=== PATIENT | female | born 1925 | race Caucasian/White ===

== ENCOUNTER 2017-01-09 12:53 | Observation (INO) ==
--- NOTE | 2017-01-09 13:30 | Emergency Department Note ---
Disposition Clinical Impression: Melena, Anemia, General weakness Disposition: Admitted As Inpatient Condition: Good Time of Disposition: 15:22 GI Bleed HPI - General Chief complaint: ED GI Bleed Stated complaint: Needs Blood Transfusion Time Seen by Provider: 01/09/17 13:08 Source: patient, family Limitations: no limitations Nursing Notes Reviewed: Yes Vital Signs Reviewed: Yes - History of Present Illness HPI Narrative: Ms. Gomez is a 89 y/o F with a past medical history AFib presents today stating that she needs a blood transfusion. The patient stated that she has been having black stools for the past 4 to 5 days. She went to the lab yesterday and her hemoglobin dropped from 11 to 7. She states that her nailhead operator called her yesterday and told her to contact her PCP. Her PCP, Dr. Ines Waite , sent her to the ED today since the outpatient transfusion center is booked. She admits her last bowel movement was at 2:00 am and it was half black and half brown. She denies any headache, vision changes, , shortness of breath, difficulty breathing, abdominal pain, constipation, diarrhea, numbness and tingling, and any weaknesses. - Related Data Home Medications Medication Instructions Recorded Confirmed Albuterol Sulfate [Proair Hfa] 2 puff IH Q4H PRN 10/22/15 10/22/15 Aspirin Enteric Coated [Aspirin EC] 81 mg PO DAILY 10/22/15 10/22/15 Atorvastatin Calcium [Lipitor] 20 mg PO DAILY 10/22/15 10/22/15 Budesonide/Formoterol 160/4.5 2 puff IH BIDR 10/22/15 10/22/15 [Symbicort 160/4.5] D-Methorphan/Acetamin/Doxylamn 1 cap PO HS PRN 10/22/15 10/22/15 [Vicks Nyquil Liquicaps] Digoxin [Lanoxin] 0.125 mg PO DAILY 10/22/15 10/22/15 Glu/Rachid-MSM#1/D3/C/Mn/Bennett/Bor [Eq 1 tab PO DAILY 10/22/15 10/22/15 [id number] Cplt] L. Acidophilus/Pectin, [place] 1 cap PO DAILY 10/22/15 10/22/15 [Acidophilus Probiotic Capsule] Levothyroxine [Synthroid] 25 mcg PO DAILY 10/22/15 10/22/15 Losartan [Cozaar] 25 mg PO DAILY 10/22/15 10/22/15 Multivitamin [One Daily Essential] 1 tab PO DAILY 10/22/15 10/22/15 Mupirocin Calcium [Bactroban Nasal] 1 appl NS AD 10/22/15 10/22/15 Oxygen 1 each .ROUTE AD 10/22/15 10/22/15 Ubidecarenone [Co Q10] 100 mg PO DAILY 10/22/15 10/22/15 Previous Rx's Medication Instructions Recorded Albuterol Neb [Proventil Neb] 2.5 mg IH Q4HR PRN #100 vial.neb 10/17/15 Benzonatate [Tessalon] 100 mg PO TID PRN #30 capsule 10/27/15 Codeine Sulfate 30 mg PO TID #20 tablet 10/27/15 Furosemide [Lasix] 20 mg PO BID #14 tablet 10/27/15 Insulin Glargine [Lantus] 15 unit SQ DAILY #120 mls 10/27/15 Ipratropium Neb [Atrovent Neb] 0.5 mg IH [id number] 6 Days inhsol 10/27/15 Levalbuterol Neb [Xopenex Neb] 0.63 mg IH [id number] 6 Days 10/27/15 vial.neb Nebulizer [Aeroeclipse] 1 each ONCE #1 each 10/27/15 glipiZIDE [Glipizide] 2.5 mg PO DAILY #7 tablet 10/27/15 levoFLOXacin [Levaquin] 500 mg PO DAILY #4 tablet 10/27/15 metFORMIN [Glucophage] 500 mg PO 0800 #7 tablet 10/27/15 predniSONE [PredniSONE] 10 mg PO DAILY #22 tablet 10/27/15 cephALEXin [Keflex] 500 mg PO QID #40 capsule 02/03/16 predniSONE [Prednisone] 40 mg PO DAILY 5 Days tablet 02/03/16 Albuterol Sulfate [Albuterol 4 puff IH Q4HR PRN #1 hfa.aer.ad 04/18/16 Inhaler] predniSONE [PredniSONE] 40 mg PO DAILY 4 Days tablet 04/18/16 Allergies Allergy/AdvReac Type Severity Reaction Status Date / Time iodine AdvReac Mild Drowsy Verified 10/06/15 11:49 quinidine AdvReac Lethargic Verified 01/09/17 15:53 Constitutional: Denies: fever, chills, weakness, weight change Eyes: Denies: eye pain, eye discharge, vision change ENT ED: Denies: ear pain, throat pain, dental pain, hearing loss, epistaxis, congestion, dysphagia Cardiovascular: Denies: chest pain, palpitations, dyspnea on exertion, edema, syncope Respiratory: Denies: cough, dyspnea, wheezes, hemoptysis, stridor Gastrointestinal: Reports: melena. Denies: abdominal pain, nausea, vomiting, diarrhea, constipation, hematemesis, hematochezia Genitourinary: Denies: dysuria, frequency, hematuria, discharge Musculoskeletal: Denies: back pain, neck pain, arthralgia, myalgia Integumentary: Denies: rash, abrasion, lesions Neurological: Denies: headache, weakness, numbness, paresthesias, confusion, abnormal gait, vertigo Psychiatric: Denies: anxiety, depression, suicidal thoughts, homicidal thoughts , auditory hallucinations, visual hallucinations Endocrine: Denies: fatigue Hematological/Lymphatic: Denies: easy bleeding, easy bruising Allergic/Immunologic: Denies: facial swelling, urticaria Past Medical History - Past Medical History Medical history: Reports: atrial fibrillation, cancer, COPD, GI bleed, hyperlipidemia, hypertension, renal disease Psychiatric history: Reports: no psych history 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: Reports: no 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 - Social History Smoking Status: Never smoker Smokeless Tobacco Status: No Alcohol use: Reports: occasionally Drug use: Reports: none Physical Exam - General Limitations: no limitations General appearance: alert - Head Head exam: atraumatic, normocephalic, normal inspection - Eye Eye exam: Present: normal appearance, PERRL, EOMI - Expanded Eye Exam Pupils: Left: reactive - ENT ENT exam: normal exam, normal oropharynx, mucous membranes moist - Expanded ENT Exam External ear exam: Present: normal external inspection Mouth exam: Present: normal external inspection Teeth exam: Present: normal inspection Throat exam: Present: normal inspection - Neck Neck exam: Present: normal inspection, full ROM, trachea midline - Chest Chest inspection: Present: normal inspection, symmetric chest wall rise - Respiratory Respiratory exam: Present: normal lung sounds bilaterally - Cardiovascular Cardiovascular exam: Present: regular rate, normal rhythm, normal heart sounds - Abdominal Exam Abdominal exam: Present: soft, Non-Tender, normal bowel sounds. Absent: tenderness, distention, guarding, rebound, rigidity, trauma, Rovsing's sign - Rectal Exam Rectal exam: Present: other (The rectal exam was recommended butthe patient refused and denied the rectal exam. ) - Extremities Exam Extremities exam: Present: normal inspection, full ROM. Absent: tenderness, pedal edema - Expanded Upper Extremity Exam Shoulder exam: Present: normal inspection, full ROM Arm exam: Present: normal inspection, full ROM Elbow exam: Present: normal inspection, full ROM Forearm/Wrist exam: Present: normal inspection, full ROM Hand exam: Present: normal inspection, full ROM Vascular exam: Normal: capillary refill, radial pulse - Expanded Lower Extremity Exam Hip/Pelvis exam: Present: normal inspection, full ROM Upper leg exam: Present: normal inspection, full ROM Knee exam: Present: normal inspection, full ROM Lower leg exam: Present: normal inspection, full ROM Ankle exam: Present: normal inspection, full ROM Foot/toe exam: Present: normal inspection, full ROM Neurovascular/Tendon exam: Absent: motor deficit, sensory deficit, tendon deficit - Back Exam Back exam: Present: normal inspection, full ROM. Absent: tenderness - Neurological Exam Neurological exam: Present: alert, oriented X3 - Expanded Neurological Exam Patient oriented to: Present: person, place, time Coma Scale Eye Opening: Spontaneous Coma Scale Motor Response: Obeys Commands Coma Scale Verbal Response: Oriented Coma Scale Total: 15 - Psychiatric Psychiatric exam: Present: normal affect, normal mood - Skin Skin exam: Present: warm, dry, intact, normal color Course Course Narrative: Ms. Gomez is an 89 y/o female with a past medical history of AFib and GI bleed who presents to the ED stating for a blood transfusion. The patient was sent to the ED by her primary care physician due to her low hemoglobin of 7.2. The patient states that she refuse to have any endoscopy, colonoscopy, and rectal exam. The patient's vitals are currently stable and the patient will be admitted to receive transfusion. The patient agrees with this plan. - Consultations Consultation #1: Spoke with Dr. Marquez. He has accepted the patient. Time: 15:17 Vital Signs Temperature 98.2 F 01/09/17 12:55 Pulse Rate 88 01/09/17 12:55 Respiratory Rate 18 01/09/17 12:55 Blood Pressure 113/65 01/09/17 12:55 O2 Sat by Pulse Oximetry 96 01/09/17 12:55 Temperature 98.1 F 01/09/17 16:15 Pulse Rate 108 01/09/17 16:15 Respiratory Rate 18 01/09/17 16:15 Blood Pressure 113/66 01/09/17 16:15 O2 Sat by Pulse Oximetry 96 01/09/17 16:15 Oxygen Delivery Oxygen Delivery Room Air GI Bleed - [facility] Narrative Medical decision making narrative: Ms. Gomez is an 89 y/o female with a past medical history of AFib and GI bleed who presents to the ED stating for a blood transfusion. The patient was sent to the ED by her primary care physician due to her low hemoglobin of 7.2. The patient states that she refuse to have any endoscopy, colonoscopy, and rectal exam. I reviewed the patient's labs and her CBC in the ED showed a hemoglobin of 7.5. She will be admitted to the hospital and receive blood transfusion. Dr. Marquez has accepted the patient. - Differential Diagnosis Likely: melena - Medical Records Medical records reviewed: Yes I reviewed the patient's medical records. - Lab Data Lab results reviewed: Yes I reviewed the patient's lab results. Result diagrams: 01/09/17 13:37 01/09/17 13:37 Lab Results 01/09/17 01/09/17 01/09/17 Range/Units 13:37 13:37 13:37 WBC 15.0 H (4.3-11.1) K/mcL RBC 2.95 L (3.82-4.97) M/mcL Hgb 7.5 L (11.5-15.4) g/dL Hct 24.7 L (35.3-44.9) % MCV 83.7 (83.0-100.0) fL MCH 25.4 L (28.0-33.3) pg MCHC 30.4 L (31.6-35.5) g/dL RDW 17.2 H (11.5-14.5) % Plt Count 258 (140-400) K/mcL MPV 9.0 L (9.4-12.4) fL Immature Gran % 1.3 (0-4) % Seg Neutrophils % 65.5 % Lymphocytes % 6.5 % Monocytes % 26.4 % Eosinophils % 0.1 % Basophils % 0.2 % Neutrophils # 9.8 H (1.6-8.9) K/mcL Lymphocytes # 1.0 (0.6-4.6) K/mcL Monocytes # 4.0 H (0.0-1.3) K/mcL Eosinophils # 0.0 (0.0-0.6) K/mcL Basophils # 0.0 (0.0-0.2) K/mcL Sodium 133 L (136-145) mEq/L Potassium 4.3 (3.5-4.5) mEq/L Chloride 97 L (98-109) mEq/L Carbon Dioxide 26 (19-29) mEq/L BUN 33 H (7-20) mg/dL Creatinine 1.16 H (0.57-1.11) mg/dL Est GFR ( Amer) 53 L (> 60) Est GFR (Non-Af Amer) 44 L (> 60) BUN/Creatinine Ratio 28 H (6-26) Glucose 86 (70-99) mg/dL Calculated Osmolality 283 (280-300) Calcium 9.5 (8.6-10.8) mg/dL Total Bilirubin 1.4 H (0.2-1.2) mg/dL AST 21 (5-34) Units/L ALT 12 (0-55) Units/L Alkaline Phosphatase 165 H (38-126) Units/L Troponin I 0.02 (0-0.03) ng/mL Serum Total Protein 6.8 (6.0-8.3) g/dL Albumin 3.4 L (3.5-5.0) g/dL Globulin 3.4 (2.4-3.5) g/dL Albumin/Globulin Ratio 1.0 L (1.1-2.2) Blood Type Antibody Screen Crossmatch 01/09/17 Range/Units 13:37 WBC (4.3-11.1) K/mcL RBC (3.82-4.97) M/mcL Hgb (11.5-15.4) g/dL Hct (35.3-44.9) % MCV (83.0-100.0) fL MCH (28.0-33.3) pg MCHC (31.6-35.5) g/dL RDW (11.5-14.5) % Plt Count (140-400) K/mcL MPV (9.4-12.4) fL Immature Gran % (0-4) % Seg Neutrophils % % Lymphocytes % % Monocytes % % Eosinophils % % Basophils % % Neutrophils # (1.6-8.9) K/mcL Lymphocytes # (0.6-4.6) K/mcL Monocytes # (0.0-1.3) K/mcL Eosinophils # (0.0-0.6) K/mcL Basophils # (0.0-0.2) K/mcL Sodium (136-145) mEq/L Potassium (3.5-4.5) mEq/L Chloride (98-109) mEq/L Carbon Dioxide (19-29) mEq/L BUN (7-20) mg/dL Creatinine (0.57-1.11) mg/dL Est GFR ( Amer) (> 60) Est GFR (Non-Af Amer) (> 60) BUN/Creatinine Ratio (6-26) Glucose (70-99) mg/dL Calculated Osmolality (280-300) Calcium (8.6-10.8) mg/dL Total Bilirubin (0.2-1.2) mg/dL AST (5-34) Units/L ALT (0-55) Units/L Alkaline Phosphatase (38-126) Units/L Troponin I (0-0.03) ng/mL Serum Total Protein (6.0-8.3) g/dL Albumin (3.5-5.0) g/dL Globulin (2.4-3.5) g/dL Albumin/Globulin Ratio (1.1-2.2) Blood Type B NEGATIVE Antibody Screen NEGATIVE Crossmatch See Detail - EKG Data EKG attestation: Yes I reviewed and interpreted this EKG. Rhythm: A.Fib Josephine/QRS: left axis deviation When compared to previous EKG there are: no significant changes Interpretation: no acute changes Critical Care Time Critical Care Time: No
[2017-01-09 13:45] LABS: Basophils % 0.2 %; Eosinophils % 0.1 %; Hematocrit 24.7 % (35.3-44.9); Immature Granulocytes % 1.3 % (0-4); Lymphocytes % 6.5 %; Mean Corpuscular HGB Conc 30.4 g/dL (31.6-35.5); Mean Corpuscular Hemoglobin 25.4 pg (28.0-33.3); Mean Corpuscular Volume 83.7 fL (83.0-100.0); Monocytes % 26.4 %; Neutrophils # 9.8 K/mcL (1.6-8.9); Platelet Count 258 K/mcL (140-400); Red Blood Count 2.95 M/mcL (3.82-4.97); Red Cell Distribution Width 17.2 % (11.5-14.5); Segmented Neutrophils % 65.5 %
[2017-01-09 13:49] LABS: Hemoglobin 7.5 g/dL (11.5-15.4)
[2017-01-09 13:59] LABS: Albumin 3.4 g/dL (3.5-5.0); Bilirubin,Total 1.4 mg/dL (0.2-1.2); Calcium 9.5 mg/dL (8.6-10.8); Globulin 3.4 g/dL (2.4-3.5); Potassium 4.3 mEq/L (3.5-4.5); Total Protein 6.8 g/dL (6.0-8.3)
--- NOTE | 2017-01-09 14:01 | Emergency Department Note ---
START Narrative - START START: I examined this patient and my medical decision-making was reviewed with the Resident Physician. I agree with the documented findings, disposition and treatment plan as described except to the extent set forth below. 89-year-old female presents emergency room for anemia. Patient had outpatient lab work yesterday that showed a hemoglobin of 7. She was directed to come to get blood transfusion. They attempted to set this up as an outpatient but was unsuccessful. This was explained to me by the patient. She has symptomatic with increasing shortness of breath and fatigue. She denies any chest pain. She states she has had black-colored stool consistent with an upper GI bleed. History of an upper GI bleed in the past that had a colonoscopy done years ago. Patient will be type and cross and will need to get some transfusions of at least 2 units of blood. she states previous colonoscopy did not reveal any bleeding problems.
[2017-01-09] MEDS ORDERED: 0.9 % Sodium Chloride 1,000 ML ONE (15:17)
[2017-01-09] MEDS ORDERED: Ondansetron 4 MG/2 ML VIAL IVP PRN (15:50)
[2017-01-09] MEDS ORDERED: Naloxone 0.4 MG/ML INJ IVP PRN (15:50)
[2017-01-09] MEDS ORDERED: Acetaminophen 325 MG TABLET PO PRN (15:50)
[2017-01-09] MEDS ORDERED: *HR* Dextrose 50 % in Water (Syg) 50 ML SYRINGE IVP PRN (15:53)
[2017-01-09] MEDS ORDERED: D5% in Water 1,000 ML IVC PRN (15:53)
[2017-01-09] MEDS ORDERED: Dextrose Gel 15 GM PO PRN ×2 (15:53)
[2017-01-09] MEDS ORDERED: Insulin LISPRO 300 UNITS/3 ML VIAL SQ SCH ×2 (16:30→21:00)
[2017-01-09] MEDS ORDERED: Albuterol 2.5 MG/3 ML NEBULIZER IH PRN (16:34)
--- NOTE | 2017-01-09 16:42 | Internal Med History&Physical ---
Date of Encounter: 01/09/17 Time of Encounter: 16:37 Assessment and Plan (1) Melena Current visit: Yes Status: Acute 1 patient has been experiencing 4-5 days of melena stool. Hemoglobin 7.5 which is down from August was 11 Denies any abdominal pain fever hematemesis or hematochezia. History of GI bleed in the past 2009 had colonoscopy as well as EGD there was no source of GI bleed found. She was on Coumadin at that time which was stopped. Presently she is on aspirin for paroxysmal atrial fibrillation which we will hold. Type and screen for 2 units and transfuse. 2 presently the patient is declining colonoscopy EGD or rectal exam. We will attempt to obtain stool for occult blood 3 we will recheck hemoglobin in a.m. (2) COPD (chronic obstructive pulmonary disease) Current visit: No Status: Chronic 1 presently stable bronchodilators as needed oxygen as needed to maintain SPO2 greater than 92% Qualifiers: COPD type: unspecified COPD Qualified Code(s): J44.9 - Chronic obstructive pulmonary disease, unspecified (3) Afib Current visit: No Status: Chronic Patient has a history of paroxysmal atrial fibrillation continue with metoprolol we will hold aspirin for now due to bleeding. 2 continuous cardiac monitoring Qualifiers: Atrial fibrillation type: paroxysmal Qualified Code(s): I48.0 - Paroxysmal atrial fibrillation (4) CHF (congestive heart failure) Current visit: No Status: Chronic 1 echo completed in January 2016 EF 60-65%, presently she does not appear to be in fluid overload we will continue with home medications and monitor intake and output 2 low sodium diet Qualifiers: Congestive heart failure type: unspecified congestive heart failure type Congestive heart failure chronicity: chronic Qualified Code(s): I50.9 - Heart failure, unspecified Internal Medicine - H&P: HPI Chief complaint: low Hgb Admitted From: Emergency Dept Plans for Post Hospital Care: Home History of present illness: Ms. Goemz is a 89 year old female past medical history of paroxysmal atrial fibrillation systolic heart failure type 2 diabetes COPD anemia hypothyroidism pulmonary hypertension history of GI bleed in 2009 history of obstructive sleep apnea CVA in 2009. According to the patient she has been experiencing colonic stools for the past 4-5 days. She did have outpatient lab work drawn yesterday it was notified today by her PCP other results patient wanted to have outpatient blood transfusion however was unable to set up an appointment she was advised to go to the ER. In the ER lab work did reveal hemoglobin 7.5 this is down from previous hemoglobin of 11 and 09/11/2016. She notes her last bowel movement was around 2 AM describes as dark she denies any abdominal pain fevers nausea or vomiting. No hematochezia or hematemesis She does admit to some fatigue but no weakness or shortness of breath. Per ER notes patient declined rectal exam. She has been admitted for further workup and evaluation. Presently patient does not appear to be in any pain or discomfort. Her lung sounds are clear heart sounds are irregular with a systolic 3/6 murmur. Abdomen is soft and nontender to palpation she does have some slight pedal edema bilaterally which she states is chronic. Patient again declined any rectal examination she verbalizes that she does not want a colonoscopy or an EGD and that she only wants blood transfusion and sent home. Prior to this development the patient was in her normal state of health living independently and performing her ADLs without difficulty We did discuss CODE STATUS she verbalizes that she wants to be a full code at this time she is hemodynamically stable at this time. I reviewed this case with Dr. Marquez who agrees with plan. Past Med Surg Social Fam HX - Past Medical History Medical history: atrial fibrillation, cancer, COPD, GI bleed, hyperlipidemia, hypertension, renal disease Psychiatric history: no psych history - Social History Smoking Status: Never smoker Smokeless Tobacco Status: No Alcohol use: occasionally Drug use: none - Family History Mother Hx Family Cardiac Disorders: Yes Internal Medicine - H&P: Meds Albuterol Neb [Proventil Neb] 2.5 mg IH Q4HR PRN #100 vial.neb 10/17/15 [Rx] Albuterol Sulfate [Proair Hfa] 2 puff IH Q4H PRN 10/22/15 [History] Aspirin Enteric Coated [Aspirin EC] 81 mg PO DAILY 10/22/15 [History] Atorvastatin Calcium [Lipitor] 20 mg PO DAILY 10/22/15 [History] Budesonide/Formoterol 160/4.5 [Symbicort 160/4.5] 2 puff IH BIDR 10/22/15 [ History] D-Methorphan/Acetamin/Doxylamn [Vicks Nyquil Liquicaps] 1 cap PO HS PRN [History] Digoxin [Lanoxin] 0.125 mg PO DAILY 10/22/15 [History] Glu/[place]achid-[facility] [place]/D3/C/Mn/[place]/Bor [Eq [id number]-Gzapwr-KLJ Cplt] 1 tab PO DAILY 10/22/15 [History] L. Acidophilus/Pectin, [place] [Acidophilus Probiotic Capsule] 1 cap PO DAILY 12/29 [History] Levothyroxine [Synthroid] 25 mcg PO DAILY 10/22/15 [History] Losartan [Cozaar] 25 mg PO DAILY 10/22/15 [History] Multivitamin [One Daily Essential] 1 tab PO DAILY 10/22/15 [History] Mupirocin Calcium [Bactroban Nasal] 1 appl NS AD 10/22/15 [History] Oxygen 1 each .ROUTE AD 10/22/15 [History] Ubidecarenone [Co Q10] 100 mg PO DAILY 10/22/15 [History] Benzonatate [Tessalon] 100 mg PO TID PRN #30 capsule 10/27/15 [Rx] Codeine Sulfate 30 mg PO TID #20 tablet 10/27/15 [Rx] Furosemide [Lasix] 20 mg PO BID #14 tablet 10/27/15 [Rx] Insulin Glargine [Lantus] 15 unit SQ DAILY #120 mls 10/27/15 [Rx] Ipratropium Neb [Atrovent Neb] 0.5 mg IH [id number] 6 Days inhsol 10/27/15 [Rx] Levalbuterol Neb [Xopenex Neb] 0.63 mg IH [id number] 6 Days vial.neb 10/27/15 [Rx ] Nebulizer [Aeroeclipse] 1 each ONCE #1 each 10/27/15 [Rx] glipiZIDE [Glipizide] 2.5 mg PO DAILY #7 tablet 10/27/15 [Rx] levoFLOXacin [Levaquin] 500 mg PO DAILY #4 tablet 10/27/15 [Rx] metFORMIN [Glucophage] 500 mg PO 0800 #7 tablet 10/27/15 [Rx] predniSONE [PredniSONE] 10 mg PO DAILY #22 tablet 10/27/15 [Rx] cephALEXin [Keflex] 500 mg PO QID #40 capsule 02/03/16 [Rx] predniSONE [Prednisone] 40 mg PO DAILY 5 Days tablet 02/03/16 [Rx] Albuterol Sulfate [Albuterol Inhaler] 4 puff IH Q4HR PRN #1 hfa.aer.ad 04/18/16 [Rx] predniSONE [PredniSONE] 40 mg PO DAILY 4 Days tablet 04/18/16 [Rx] 3 Allergy/AdvReac Type Severity Reaction Status Date / Time iodine AdvReac Mild Drowsy Verified 10/06/15 11:49 quinidine AdvReac Lethargic Verified 01/09/17 15:53 All Systems PM: A 10-system review of systems was performed and is negative for pertinent findings except as documented above in the HPI. - Constitutional Constitutional: fatigue - EENT Eyes: no change in vision, no discharge, no pain, no photophobia Nose, mouth and throat: no dysphagia, no nasal discharge, no neck pain, no sore throat - Cardiovascular Cardiovascular ROS IM: no chest pain, no diaphoresis, no dyspnea, no lightheadedness, no palpitations, no syncope - Respiratory Respiratory: no cough, no dyspnea, no wheezing, no excessive phlegm production - Gastrointestinal Gastrointestinal: melena - Genitourinary Genitourinary: no change in urinary stream, no dysuria, no flank pain, no hematuria - Musculoskeletal Musculoskeletal ROS IM: no numbness, no tingling - Integumentary Integumentary IM: no rash, no unusual bruising - Neurological Neurological ROS: no confusion, no convulsions, no focal weakness, no numbness, no tingling, no tremor(s) - Hematologic/Lymphatic Hematologic/Lymphatic: no easy bruising - Constitutional Vitals: Temp Pulse Resp BP Pulse Ox 98.1 F 108 18 113/66 96 01/09/17 16:15 01/09/17 16:15 01/09/17 16:15 01/09/17 16:15 01/09/17 16:15 General appearance: Present: A&O X 3, answers questions appropriately - Head Head exam: Present: atraumatic, normocephalic - Eye Eye exam: Present: PERRL, conjuntiva pink, sclera anicteric Pupils: Present: PERRL - Neck Neck exam general surgery: Present: supple, trachea midline. Absent: lymphadenopathy - Respiratory Respiratory exam: Present: CTAB. Absent: accessory muscle use, rales, rhonchi, wheezes - Cardiovascular Cardiovascular exam: Present: irregular rhythm, +S1, +S2, systolic murmur. Absent: diastolic murmur, gallop, rubs - GI/Abdominal GI/Abdominal exam: Present: normal bowel sounds, soft, no peritoneal signs. Absent: distended, tenderness - Extremities Exam Extremities exam: Present: warm, radial pulses palpable and symmetrical. Absent : calf tenderness, cyanotic, pedal edema - Neurological Exam Neurological exam: Present: CN II-XII intact, oriented X3, no focal deficits. Absent: pronater drift, facial droop, speech deficit - Skin Skin exam: Present: dry, intact Internal Med - H&P Results - Labs CBC & Chem 7: 01/09/17 13:37 01/09/17 13:37 - EKG Data Prior EKG available for review: yes When compared to previous EKG: there are significant changes EKG comments: 01/09/17 16:49 EKG with atrial fibrillation
[2017-01-09] MEDS: Pantoprazole 40 MG VIAL IVP SCH (18:44)
[2017-01-09] MEDS ORDERED: 0.9 % Sodium Chloride 250 ML ONE (20:58)
[2017-01-09] MEDS: Budesonide/Formoterol 160/4.5 MDI IH SCH (21:25)
[2017-01-10 01:30] LABS: Hematocrit 26.9 % (35.3-44.9); Hemoglobin 8.6 g/dL (11.5-15.4); Mean Corpuscular Hemoglobin 26.6 pg (28.0-33.3); Mean Corpuscular Volume 83.3 fL (83.0-100.0); Mean Platelet Volume 9.4 fL (9.4-12.4); Platelet Count 220 K/mcL (140-400); Red Blood Count 3.23 M/mcL (3.82-4.97); Red Cell Distribution Width 16.1 % (11.5-14.5)
[2017-01-10 01:35] LABS: Calcium 9.1 mg/dL (8.6-10.8)
[2017-01-10 02:00] LABS: Hypochromasia Present (Not Present); Lymphocytes # 0.8 K/mcL (0.6-4.6); Monocytes # 1.4 K/mcL (0.0-1.3); Neutrophils # 7.9 K/mcL (1.6-8.9); Platelet Estimate Normal (Normal); Polychromasia 1+ (Not Present)
[2017-01-10] MEDS: Pantoprazole 40 MG VIAL IVP SCH (05:35)
[2017-01-10 07:40] VITALS: BP 105/54
--- NOTE | 2017-01-10 08:09 | Electrocardiograph Report ---
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
[2017-01-10] MEDS: Budesonide/Formoterol 160/4.5 MDI IH SCH (08:18)
[2017-01-10] MEDS ORDERED: Aspirin Enteric Coated 81 MG Tablet PO SCH (09:00)
[2017-01-10] MEDS ORDERED: hydrOXYzine pamoate 25 MG CAPSULE PO SCH (09:00)
[2017-01-10] MEDS ORDERED: Furosemide 20 MG TABLET PO SCH (09:00)
[2017-01-10] MEDS ORDERED: metOLazone 5 MG TABLET PO SCH (09:00)
--- NOTE | 2017-01-10 09:25 | Discharge Summary ---
<Annelise Lopez Leticia - Last Filed: 01/10/17 09:21> Date of Encounter: 01/10/17 Time of Encounter: 09:22 - Discharge Diagnosis (1) Melena Priority: Primary Status: Acute (2) Afib Priority: Secondary Status: Chronic Qualifiers: Atrial fibrillation type: paroxysmal Qualified Code(s): I48.0 - Paroxysmal atrial fibrillation (3) CHF (congestive heart failure) Priority: Secondary Status: Chronic Qualifiers: Congestive heart failure type: diastolic Congestive heart failure chronicity: chronic Qualified Code(s): I50.32 - Chronic diastolic (congestive ) heart failure (4) COPD (chronic obstructive pulmonary disease) Priority: Secondary Status: Chronic Qualifiers: COPD type: unspecified COPD Qualified Code(s): J44.9 - Chronic obstructive pulmonary disease, unspecified - Discharge Medications Home Medications: Atorvastatin Calcium [Lipitor] 20 mg PO HS 10/22/15 [History] Budesonide/Formoterol 160/4.5 [Symbicort 160/4.5] 2 puff IH BIDR 10/22/15 [ History] Oxygen 1 each .ROUTE AD 10/22/15 [History] Aspirin [Lo-Dose Aspirin EC] 81 mg PO DAILY 01/09/17 [History] Fexofenadine/Pseudoephedrine [Jackie-D 12 Hour Tablet] 180 mg PO DAILY PRN [History] Furosemide [Lasix] 20 mg PO DAILY 01/09/17 [History] HydrOXYzine 25 mg PO TID 01/09/17 [History] Inulin/Chromium Picolinate [Fiber Gummies] 1 each PO DAILY 01/09/17 [History] Lactobacillus Acidophilus [Acidophilus Probiotic] 1 mg PO DAILY 01/09/17 [ History] Levothyroxine [Synthroid] 50 mcg PO 0630 01/09/17 [History] Metoprolol Tartrate [Lopressor] 25 mg PO BID 01/09/17 [History] Multivitamin [Multi-Day Vitamins] 1 each PO DAILY 01/09/17 [History] Potassium Chloride [Klor-Con 10] 30 meq PO BID 01/09/17 [History] Spironolactone [Aldactone] 50 mg PO DAILY 01/09/17 [History] Triamcinolone Acetonide 1 appl TP QID PRN 01/09/17 [History] Ubidecarenone [Co Q-10] 200 mg PO DAILY 01/09/17 [History] metOLazone [Zaroxolyn] 5 mg PO DAILY 01/09/17 [History] Allergies/Adverse Reactions: 3 Allergy/AdvReac Type Severity Reaction Status Date / Time iodine AdvReac Mild Drowsy Verified 10/06/15 11:49 quinidine AdvReac Lethargic Verified 01/09/17 15:53 Date of admission: 01/09/17 15:39 Primary care physician: Marti Waite Discharging clinician: Annelise Lopez Anticipated date of discharge: 01/10/17 - Patient Status Disposition: Home, Self-Care Condition: Good Functional capacity at discharge: independent ambulation Overall status at discharge: patient is progressing back to baseline - Discharge Instructions Instructions: Iron Rich Diet (DC), Iron Deficiency Anemia (DC) Follow Up With: Marti Waite MD [Primary Care Provider] - 01/18/17 1:45 pm - Diet and Activity Diet: low salt diet Interval History: Patient feels well this morning. Status post 2 units packed red blood cells. Hospital course: Ms. Gomez is a 89 year old female admitted for blood transfusion due to outpatient blood transfusion facilities having a three-day weight. She had been experiencing 4-5 days of melanotic stool. Hemoglobin was 7.5 on admission to the ER down from previous of 11 in August. She received 2 units of packed red blood cells while admitted. Her hemoglobin subsequently came up to 8.6. She does not wish to have rectal exam or colonoscopy. She has a past medical history of previous GI bleed in 2009 and underwent endoscopy, colonoscopy, and capsule endoscopy and the source of bleeding was never found. - Time Spent with Patient Total time spent providing and/or coordinating discharge services: - Constitutional Vitals: Temp Pulse Resp BP Pulse Ox 97.9 F 109 16 105/54 92 01/10/17 07:39 01/10/17 07:39 01/10/17 08:20 01/10/17 08:20 01/10/17 08:20 General appearance: Present: A&O X 3, pleasant, no acute distress, answers questions appropriately - Head Head exam: Present: atraumatic, normocephalic - Eye Eye exam: Present: PERRL, conjuntiva pink, sclera anicteric Pupils: Present: PERRL - Neck Neck exam general surgery: Present: supple, trachea midline - Respiratory Respiratory exam: Present: CTAB. Absent: accessory muscle use, rales, rhonchi, wheezes - Cardiovascular Cardiovascular exam: Present: irregular rhythm, +S1, +S2, systolic murmur - GI/Abdominal GI/Abdominal exam: Present: normal bowel sounds, soft, no peritoneal signs. Absent: distended, tenderness - Extremities Exam Extremities exam: Present: normal capillary refill, pedal edema, warm. Absent: tenderness - Neurological Exam Neurological exam: Present: CN II-XII intact, oriented X3, no focal deficits. Absent: pronater drift, facial droop, speech deficit - Skin Skin exam: Present: dry, intact, warm <Graham Flor - Last Filed: 01/10/17 17:29> Date of Encounter: 01/10/17 - Discharge Diagnosis (1) Melena Status: Acute (2) Anemia Priority: Primary Status: Acute Qualifiers: Anemia type: iron deficiency Iron deficiency anemia type: chronic blood loss Qualified Code(s): D50.0 - Iron deficiency anemia secondary to blood loss (chronic) (3) CKD (chronic kidney disease) Priority: Secondary Status: Chronic Qualifiers: Chronic kidney disease stage: stage 3 (moderate) Qualified Code(s): N18.3 - Chronic kidney disease, stage 3 (moderate) (4) COPD (chronic obstructive pulmonary disease) Status: Chronic Qualifiers: COPD type: unspecified COPD Qualified Code(s): J44.9 - Chronic obstructive pulmonary disease, unspecified (5) CHF (congestive heart failure) Status: Chronic Qualifiers: Congestive heart failure type: diastolic Congestive heart failure chronicity: chronic Qualified Code(s): I50.32 - Chronic diastolic (congestive ) heart failure (6) Afib Status: Chronic Qualifiers: Atrial fibrillation type: paroxysmal Qualified Code(s): I48.0 - Paroxysmal atrial fibrillation - Notes to Outpatient Provider We recommended OTC iron supplement. She does not want any further work up of her anemia and potential GI bleeding. Date of admission: 01/09/17 15:39 Primary care physician: Marti [facility] course: Ms. Gomez is a 89 year old female - Time Spent with Patient Total time spent providing and/or coordinating discharge services: 34min - Constitutional Vitals: Temp Pulse Resp BP Pulse Ox 97.9 F 109 16 105/54 92 01/10/17 07:39 01/10/17 07:39 01/10/17 08:20 01/10/17 08:20 01/10/17 08:20 - Attending Attestation I examined this patient and my medical decision-making was reviewed with the Resident Physician on 01/10/17. I agree with the documented findings, disposition and treatment plan as described except to the extent set forth below. Ms. Gomez has been placed in observation for melena and anemia. She has received 2 units PRBCs. She does not want any further workup of her anemia and is aware of the potential consequences. She is afebrile with stable vitals. She is ready for discharge home. Exam Alert. Pleasant Mucus membranes dry Heart reg No wheeze Abd soft No edema Plan D/C today Monitor H/H per PCP OTC iron supplement.
== END 2017-01-10 11:16 | disposition home or self-care (01) ==
LOC: 3BNU 12:53 → EMEROO 12:53 → SUATTDRO 15:39 → 3BNU 16:05
PROVIDERS: ADMIT Internal Medicine; ATTEND Internal Medicine

== ENCOUNTER 2017-04-02 01:55 | Inpatient (IN) ==
[2017-04-02] MEDS ORDERED: Ondansetron 4 MG/2 ML VIAL IVP ONE (02:14)
[2017-04-02] MEDS ORDERED: 0.9 % Sodium Chloride 1,000 ML IVC ONE ×3 (02:14→03:53)
[2017-04-02] MEDS ORDERED: *HR* Morphine 2 MG/ML SYRINGE IVP ONE (02:14)
--- NOTE | 2017-04-02 02:17 | Emergency Department Note ---
Disposition Clinical Impression: Colitis, Diverticulosis of colon, Perforation of colon, BLAKE (acute kidney injury) Sepsis Qualifiers: Sepsis type: sepsis due to unspecified organism Qualified Code(s): A41.9 - Sepsis, unspecified organism Disposition: Admitted As Inpatient Referrals: Marti Waite MD [Primary Care Provider] - Forms: ED Satisfaction Letter, Work/School Release Abdominal Pain HPI - General Chief Complaint: ED Abdominal Pain Stated Complaint: ADB Pain Time Seen by Provider: 04/02/17 02:04 Source: patient, family Mode of arrival: private vehicle Limitations: no limitations Nursing Notes Reviewed: Yes Vital Signs Reviewed: Yes - History of Present Illness Pt Subjective Complaint: abdominal pain Onset (ago): hour(s) (since 8pm) Consistency: constant Location: LLQ, RLQ Pain Severity: moderate, severe Pain Scale: 8 Quality: stabbing, sharp Radiation: none Migration to: no migration Improves with: nothing Worsens with: nothing Context: history of similar episodes, other (PAtient states that she thinks the pain is from Diverticulitis) Associated symptoms: Reports: nausea, vomiting, diarrhea, anorexia. Denies: fever, chills, constipation, dysuria, hematemesis, hematochezia, melena, hematuria, syncope Treatments prior to arrival: none - Related Data Home Medications Medication Instructions Recorded Confirmed Atorvastatin Calcium [Lipitor] 20 mg PO HS 10/22/15 01/09/17 Budesonide/Formoterol 160/4.5 2 puff IH BIDR 10/22/15 01/09/17 [Symbicort 160/4.5] Oxygen 1 each .ROUTE AD 10/22/15 01/09/17 Aspirin [Lo-Dose Aspirin EC] 81 mg PO DAILY 01/09/17 01/09/17 Fexofenadine/Pseudoephedrine 180 mg PO DAILY PRN 01/09/17 01/09/17 [Jackie-D 12 Hour Tablet] Furosemide [Lasix] 20 mg PO DAILY 01/09/17 01/09/17 HydrOXYzine 25 mg PO TID 01/09/17 01/09/17 Inulin/Chromium Picolinate [Fiber 1 each PO DAILY 01/09/17 01/09/17 Gummies] Lactobacillus Acidophilus 1 mg PO DAILY 01/09/17 01/09/17 [Acidophilus Probiotic] Levothyroxine [Synthroid] 50 mcg PO 0630 01/09/17 01/09/17 Metoprolol Tartrate [Lopressor] 25 mg PO BID 01/09/17 01/09/17 Multivitamin [Multi-Day Vitamins] 1 each PO DAILY 01/09/17 01/09/17 Potassium Chloride [Klor-Con 10] 30 meq PO BID 01/09/17 01/09/17 Spironolactone [Aldactone] 50 mg PO DAILY 01/09/17 01/09/17 Triamcinolone Acetonide 1 appl TP QID PRN 01/09/17 01/09/17 Ubidecarenone [Co Q-10] 200 mg PO DAILY 01/09/17 01/09/17 metOLazone [Zaroxolyn] 5 mg PO DAILY 01/09/17 01/09/17 Allergies Allergy/AdvReac Type Severity Reaction Status Date / Time iodine AdvReac Mild Drowsy Verified 04/02/17 02:02 quinidine AdvReac Lethargic Verified 04/02/17 02:02 All systems ED: reviewed and negative except as stated. Review of Systems: As Per HPI Constitutional: Denies: fever, chills, weakness Eyes: Denies: vision change ENT ED: Denies: throat pain, congestion, dysphagia Cardiovascular: Denies: chest pain, palpitations, dyspnea on exertion, orthopnea , edema, syncope Respiratory: Reports: dyspnea ("No worse than usual"). Denies: cough, wheezes, sputum production Gastrointestinal: Reports: as per HPI, abdominal pain, nausea, vomiting, diarrhea. Denies: constipation, hematemesis, melena, hematochezia Genitourinary: Denies: urgency, dysuria, frequency, hematuria Musculoskeletal: Denies: back pain, neck pain, joint swelling Integumentary: Denies: rash Neurological: Denies: headache, weakness, numbness, paresthesias, vertigo Abdominal Pain PMH - Past Medical History Medical history: Reports: atrial fibrillation, cancer, COPD, GI bleed, hyperlipidemia, hypertension, renal disease Reports: diverticulosis, diverticulitis Female Surgical History: Reports: other HEADING PINNER history: Reports: other (ovary removed) Psychiatric history: Reports: no psych history - Social History Smoking status: Former smoker Alcohol use: Reports: occasionally Drug use: Reports: none Physical Exam - General Limitations: no limitations General appearance: alert, in no apparent distress - Head Head exam: atraumatic, normocephalic, normal inspection - Eye Eye exam: Present: normal appearance, PERRL. Absent: scleral icterus, conjunctival injection, periorbital swelling - ENT ENT exam: mucous membranes dry - Neck Neck exam: Present: normal inspection, full ROM, trachea midline. Absent: meningismus - Chest Chest inspection: Present: normal inspection - Respiratory Respiratory exam: Present: normal lung sounds bilaterally. Absent: respiratory distress, wheezes, stridor, accessory muscle use, prolonged expiratory phase - Cardiovascular Cardiovascular exam: Present: regular rate, normal rhythm, systolic murmur - Abdominal Exam Abdominal exam: Present: soft, tenderness, guarding. Absent: distention, rebound, rigidity, mass, pulsatile mass Abdominal tenderness: Present: RLQ, LLQ, suprapubic, severe - Extremities Exam Extremities exam: Present: full ROM, normal capillary refill - Neurological Exam Neurological exam: Present: alert, oriented X3 - Psychiatric Psychiatric exam: Present: normal affect, normal mood - Skin Skin exam: Present: warm, dry, intact, normal color Course Course Narrative: Patient presents from home with son for evaluation of abdominal pain + NVD - acute onset at 8pm. She states that it is exactly like the pain she had a few years ago from diverticulitis. She has had an oophorectomy but no other abd surgeries. She has Hx of afib but is not on any anticoagulants. Last echo showed EF of 65%. She is very tender. Pain meds, labs and CT ordered. U/A not ordered yet b/c pt is very dry and most likely has no urine in the bladder. She denies urinary complaints or Hx of frequent UTI's. Will obtain and order this later. Labs indicate acute infection. Creatinine still pending due to lab transitioning to a new machine. - Reevaluation(s) Reevaluation #1: PAtient sleeping - awakens to voice. She states that she is feeling much better from the pain medicine. Vitals stable. Still looks very dry. CT confirms diverticulitis with microperf and colitis. IV ABX ordered. Hospitalist paged. Time: 03:26 Vital Signs Temperature 99.7 F H 04/02/17 01:57 Pulse Rate 93 04/02/17 01:57 Respiratory Rate 18 04/02/17 01:57 Blood Pressure 143/68 04/02/17 01:57 O2 Sat by Pulse Oximetry 97 04/02/17 01:57 Temperature 99.7 F H 04/02/17 01:57 Pulse Rate 85 04/02/17 02:51 Respiratory Rate 16 04/02/17 02:51 Blood Pressure 120/54 04/02/17 02:51 O2 Sat by Pulse Oximetry 94 04/02/17 02:51 Oxygen Delivery Oxygen Delivery Nasal Cannula Abdominal Pain - Medical Records Medical records reviewed: Yes I reviewed the patient's medical records. - Lab Data Lab results reviewed: Yes I reviewed the patient's lab results. Result diagrams: 04/02/17 02:20 04/02/17 02:20 Lab Results 04/02/17 04/02/17 04/02/17 Range/Units 02:20 02:20 02:20 WBC 18.5 H D (4.3-11.1) K/mcL RBC 4.50 (3.82-4.97) M/mcL Hgb 11.9 D (11.5-15.4) g/dL Hct 37.1 (35.3-44.9) % MCV 82.4 L (83.0-100.0) fL MCH 26.4 L (28.0-33.3) pg MCHC 32.1 (31.6-35.5) g/dL RDW 17.0 H (11.5-14.5) % Plt Count 225 (140-400) K/mcL MPV 10.2 (9.4-12.4) fL Immature Gran % 1.9 (0-4) % Seg Neutrophils % 84.3 % Lymphocytes % 1.6 % Monocytes % 12.1 % Eosinophils % 0.0 % Basophils % 0.1 % Neutrophils # 15.6 H (1.6-8.9) K/mcL Lymphocytes # 0.3 L (0.6-4.6) K/mcL Monocytes # 2.2 H (0.0-1.3) K/mcL Eosinophils # 0.0 (0.0-0.6) K/mcL Basophils # 0.0 (0.0-0.2) K/mcL Sodium 134 L (136-145) mEq/L Potassium 4.2 (3.5-4.5) mEq/L Chloride 92 L (98-109) mEq/L Carbon Dioxide 26 (19-29) mEq/L BUN 50 H (7-20) mg/dL Creatinine 1.90 H (0.57-1.11) mg/dL Est GFR ( Amer) 30 L (> 60) Est GFR (Non-Af Amer) 25 L (> 60) BUN/Creatinine Ratio 26 (6-26) Glucose 212 H (70-99) mg/dL Calculated Osmolality 298 (280-300) Lactic Acid 2.7 H (0.5-2.2) mmol/L Calcium 10.7 (8.6-10.8) mg/dL Total Bilirubin 1.9 H (0.2-1.2) mg/dL AST 28 (5-34) Units/L ALT 11 (0-55) Units/L Alkaline Phosphatase 185 H (38-126) Units/L Serum Total Protein 7.9 (6.0-8.3) g/dL Albumin 4.1 (3.5-5.0) g/dL Globulin 3.8 H (2.4-3.5) g/dL Albumin/Globulin Ratio 1.1 (1.1-2.2) - Radiology Data Radiology results reviewed: Yes I reviewed the patient's radiology results. Attestation Statement - Attestation Attestation: I, [place] Dimas MD, personally evaluated this patient and discussed their management with the midlevel provicer, PAC/OYSTER GROWER. I reviewed the midlevel provider 's note and agree with the documented findings, medical decision making, and plan of care. 89-year-old female presents to the emergency department with a complaint of lower abdominal pain which started earlier this evening. She has felt like she had a fever. She has had some nausea and vomiting. No diarrhea. No GI bleed symptoms. Patient has a prior history of diverticulitis and states this feels like her diverticulitis. On examination patient is a well-developed well-nourished elderly female in no acute distress. She is alert and oriented 3. There is no cyanosis or diaphoresis. Breath sounds are clear and equal bilaterally. Heart regular rate and rhythm with a grade 3/6 systolic murmur. Abdomen is soft with present bowel sounds. There is mild to moderate diffuse lower abdominal tenderness, worse in the left lower quadrant. No guarding or rebound tenderness noted. Labs reviewed. CT of the abdomen and pelvis shows severe descending colon and sigmoid colon diverticulosis. Superimposed extensive sigmoid colitis and wall thickening and adjacent micro perforation. No abscess formation. Small amount of pelvic free fluid. The hospitalist, Dr. Rachel, was consulted and accepted admission of the patient.
[2017-04-02 02:29] LABS: Basophils % 0.1 %; Hematocrit 37.1 % (35.3-44.9); Immature Granulocytes % 1.9 % (0-4); Lymphocytes # 0.3 K/mcL (0.6-4.6); Lymphocytes % 1.6 %; Mean Corpuscular HGB Conc 32.1 g/dL (31.6-35.5); Mean Corpuscular Hemoglobin 26.4 pg (28.0-33.3); Mean Corpuscular Volume 82.4 fL (83.0-100.0); Mean Platelet Volume 10.2 fL (9.4-12.4); Monocytes # 2.2 K/mcL (0.0-1.3); Monocytes % 12.1 %; Neutrophils # 15.6 K/mcL (1.6-8.9); Platelet Count 225 K/mcL (140-400); Segmented Neutrophils % 84.3 %
[2017-04-02 02:30] LABS: Hemoglobin 11.9 g/dL (11.5-15.4)
[2017-04-02] MEDS ORDERED: *HR* Morphine 2 MG/ML SYRINGE ONE (02:38)
[2017-04-02] MEDS ORDERED: 0.9 % Sodium Chloride 1,000 ML ONE (02:38)
[2017-04-02] MEDS ORDERED: Ondansetron 4 MG/2 ML VIAL ONE (02:38)
[2017-04-02 02:47] LABS: Albumin 4.1 g/dL (3.5-5.0); Albumin/Globulin Ratio 1.1 (1.1-2.2); Bilirubin,Total 1.9 mg/dL (0.2-1.2); Calcium 10.7 mg/dL (8.6-10.8); Globulin 3.8 g/dL (2.4-3.5); Potassium 4.2 mEq/L (3.5-4.5); Total Protein 7.9 g/dL (6.0-8.3)
[2017-04-02] MEDS ORDERED: Piperacillin/Tazobactam 3.375 GM in Water for inj. (sterile) 20 ML 20 ML IVPB ONE (03:28)
[2017-04-02] MEDS ORDERED: Naloxone 0.4 MG/ML INJ IVP PRN (03:44)
[2017-04-02] MEDS ORDERED: *HR* Morphine 2 MG/ML SYRINGE IVP PRN (03:44)
[2017-04-02] MEDS ORDERED: Acetaminophen 325 MG TABLET PO PRN (03:44)
[2017-04-02] MEDS ORDERED: *HR* Promethazine 25 MG/ML VIAL IVP PRN (03:44)
--- NOTE | 2017-04-02 05:21 | Internal Med History&Physical ---
Date of Encounter: 04/02/17 Time of Encounter: 04:20 Assessment and Plan (1) Sigmoid diverticulitis Current visit: Yes Status: Acute Will admit the pt into Tele Reviewed her CT of Abd - showed sigmoid diverticulitis with micro perforation, no abscess noticed Strict NPO IV hydration empirical abx Cipro and Flagyl ( renally doses ) IV analgesics Will consult surgery in the AM.. since pt does have recurrent diverticulitis (2) Intractable abdominal pain Current visit: Yes Status: Acute (3) Acute renal failure superimposed on stage 3 chronic kidney disease Current visit: Yes Status: Acute Her Cr: 1.9 today, baseline around 1.4 Mostly due to dehydration started her on IV hydration held diuretics and nephro toxic meds Qualifiers: Qualified Code(s): N17.9 - Acute kidney failure, unspecified; N18.3 - Chronic kidney disease, stage 3 (moderate); N18.3 - Chronic kidney disease, stage 3 (moderate) (4) Afib Current visit: No Status: Chronic rate controlled with Metoprolol not a good candidate for anticoag due to high risk for GI bleed cont ASA Qualifiers: Atrial fibrillation type: paroxysmal Qualified Code(s): I48.0 - Paroxysmal atrial fibrillation (5) Diastolic CHF, chronic Current visit: Yes Status: Acute stable not in decompensation held diuretics due to dehydration resume other home meds (6) COPD (chronic obstructive pulmonary disease) Current visit: No Status: Chronic stable not in exacerbation resume home INH regimen Qualifiers: COPD type: unspecified COPD Qualified Code(s): J44.9 - Chronic obstructive pulmonary disease, unspecified (7) Chronic respiratory failure with hypoxia Current visit: Yes Status: Acute chronic home O2 dependent at 2 lit..will cont Internal Medicine - H&P: HPI Chief complaint: Abdominal pain Admitted From: Emergency Dept Plans for Post Hospital Care: Home History of present illness: Ms. Gomez is a 89 year old female with known past medical history of paroxysmal atrial fibrillation systolic heart failure type 2 diabetes COPD anemia hypothyroidism pulmonary hypertension history of GI bleed in 2009 history of obstructive sleep apnea CVA in 2009 presented to ER with worsening abdominal pain and nausea started y/d morning. Her abdominal pain 8/10 in severity , located lower abdomen, non radiating, sharp and stabbing pain. Pt stated her abdominal pain little better now. Her CT of Abd showed as Severe descendig and sigmoid diverticulitis with adjacent micro perforation, with out any abscess formation. Past Med Surg Social Fam HX - Past Medical History Medical history: atrial fibrillation, cancer, COPD, GI bleed, hyperlipidemia, hypertension, renal disease Psychiatric history: no psych history - Past Surgical History Surgical History: cholecystectomy - Social History Smoking Status: Former smoker Smokeless Tobacco Status: No Alcohol use: occasionally Drug use: none - Family History Mother Hx Family Cardiac Disorders: Yes Internal Medicine - H&P: Meds Atorvastatin Calcium [Lipitor] 20 mg PO HS 10/22/15 [History] Budesonide/Formoterol 160/4.5 [Symbicort 160/4.5] 2 puff IH BIDR 10/22/15 [ History] Oxygen 1 each .ROUTE AD 10/22/15 [History] Aspirin [Lo-Dose Aspirin EC] 81 mg PO DAILY 01/09/17 [History] Fexofenadine/Pseudoephedrine [Jackie-D 12 Hour Tablet] 180 mg PO DAILY PRN [History] Furosemide [Lasix] 20 mg PO DAILY 01/09/17 [History] HydrOXYzine 25 mg PO TID 01/09/17 [History] Inulin/Chromium Picolinate [Fiber Gummies] 1 each PO DAILY 01/09/17 [History] Lactobacillus Acidophilus [Acidophilus Probiotic] 1 mg PO DAILY 01/09/17 [ History] Levothyroxine [Synthroid] 50 mcg PO 0630 01/09/17 [History] Metoprolol Tartrate [Lopressor] 25 mg PO BID 01/09/17 [History] Multivitamin [Multi-Day Vitamins] 1 each PO DAILY 01/09/17 [History] Potassium Chloride [Klor-Con 10] 30 meq PO BID 01/09/17 [History] Spironolactone [Aldactone] 50 mg PO DAILY 01/09/17 [History] Triamcinolone Acetonide 1 appl TP QID PRN 01/09/17 [History] Ubidecarenone [Co Q-10] 200 mg PO DAILY 01/09/17 [History] metOLazone [Zaroxolyn] 5 mg PO DAILY 01/09/17 [History] 3 Allergy/AdvReac Type Severity Reaction Status Date / Time iodine AdvReac Mild Drowsy Verified 04/02/17 02:02 quinidine AdvReac Lethargic Verified 04/02/17 02:02 All Systems PM: A 10-system review of systems was performed and is negative for pertinent findings except as documented above in the HPI. Review of systems: Reviewed all the systems everything is benign except the systems and symptoms I mentioned in HPI. - Constitutional Vitals: Temp Pulse Resp BP Pulse Ox 100 F H 66 19 109/47 98 04/02/17 05:05 04/02/17 05:05 04/02/17 05:05 04/02/17 05:05 04/02/17 05:05 General appearance: Present: A&O X 3, no acute distress, answers questions appropriately - Head Head exam: Present: atraumatic, normal inspection - Neck Neck exam general surgery: Present: supple - Respiratory Respiratory exam: Present: decreased breath sounds, wheezes (mild). Absent: accessory muscle use, rales, respiratory distress, rhonchi - Cardiovascular Cardiovascular exam: Present: RRR, +S1, +S2, tachycardia. Absent: systolic murmur - GI/Abdominal GI/Abdominal exam: Present: normal bowel sounds, soft, tenderness (moderate tenderness in lower abdomen). Absent: distended, guarding, rebound, rigid - Extremities Exam Extremities exam: Absent: calf tenderness, pedal edema, tenderness - Back Exam Back exam: Absent: CVA tenderness (L), CVA tenderness (R) - Neurological Exam Neurological exam: Present: alert, oriented X3 - Psychiatric Psychiatric exam: Present: normal affect, normal mood - Skin Skin exam: Absent: rash Internal Med - H&P Results - Labs CBC & Chem 7: 04/02/17 02:20 04/02/17 02:20 Labs: Short CBC 04/02/17 Range/Units 02:20 WBC 18.5 H D (4.3-11.1) K/mcL Hgb 11.9 D (11.5-15.4) g/dL Hct 37.1 (35.3-44.9) % Plt Count 225 (140-400) K/mcL Neutrophils # 15.6 H (1.6-8.9) K/mcL BMP 04/02/17 02:20 Sodium 134 L Potassium 4.2 Chloride 92 L Carbon Dioxide 26 BUN 50 H Creatinine 1.90 H Glucose 212 H Calcium 10.7 Liver Function 04/02/17 Range/Units 02:20 Total Bilirubin 1.9 H (0.2-1.2) mg/dL AST 28 (5-34) Units/L ALT 11 (0-55) Units/L Alkaline Phosphatase 185 H (38-126) Units/L Albumin 4.1 (3.5-5.0) g/dL - Impressions ITS Impressions Abdomen/Pelvis CT 04/02/17 02:24 IMPRESSION: Severe descending colon and sigmoid colon diverticulosis. Superimposed extensive sigmoid colitis and wall thickening and adjacent micro perforation. No abscess formation. Small amount of pelvic free fluid. Cardiomegaly. Status post cholecystectomy. Indeterminate right adrenal nodule measuring 10 mm. D/ / Nicolas Lagunas MD / Nicolas Lagunas MD Interpreting Provider: Nicolas Lagunas MD
[2017-04-02] MEDS: MetroNIDAZOLE 500 MG/100 ML 500 MG/100 ML BAG IVPB SCH ×3 (09:20→23:29)
--- NOTE | 2017-04-02 09:21 | Internal Med Progress Note ---
Addendum entered and electronically signed by Omar Webster DO 04/02/17 13:46: (0) Sepsis Current Visit: No Status: Acute Assessment and plan: - 2 SIRS criteria (tachycardia and leukocytosis) with lactic acid 2.7 on admission. - Likely secondary to sigmoid diverticulitis as seen on CT A/P. - Blood cultures pending. - Patient had received 2L of IV NS in ED. Continue hydration with IV fluid cautiously given her CHF history. - Improves as tachycardia resolved and lactic acid dropped to 1.4 on repeat. - Continue empirical antibiotics IV Cipro and Flagyl at renal dose. - Continue to monitor. Original Note: <Omar Webster - Last Filed: 04/02/17 12:56> Date of Encounter: 04/02/17 Time of Encounter: 08:45 - Assessment and plan (1) Sigmoid diverticulitis Current Visit: No Status: Acute Assessment and plan: - One-day history of abdominal pain with nausea on initial presentation. - CT A/P found severe descending colon and sigmoid colon diverticulosis with superimposed extensive sigmoid colitis and wall thickening and adjacent micro perforation. No abscess formation. - Continue hydration with IV fluid. - Strict NPO - Continue empirical antibiotics IV Cipro and Flagyl at renal dose. - IV morphine prn for pain control. - Continue to monitor. - Given patient improves clinically and remains hemodynamically stable, patient can be transferred to medical floor for further monitoring and care. (2) Acute renal failure superimposed on stage 3 chronic kidney disease Current Visit: No Status: Acute Assessment and plan: - SCr 1.9 on admission, worsen compared to baseline around 1.4. - Likely secondary to dehydration in the setting of poor oral intake and diuretic use. - Hydration with IV fluid. - Avoid nephrotoxin. - Continue to monitor renal function and electrolytes closely. Qualifiers: Qualified Code(s): N17.9 - Acute kidney failure, unspecified; N18.3 - Chronic kidney disease, stage 3 (moderate); N18.3 - Chronic kidney disease, stage 3 (moderate) (3) Afib Current Visit: No Status: Chronic Assessment and plan: - Rate-controlled. - Not on anticoagulation due to significant risk for GI bleed. Qualifiers: Atrial fibrillation type: paroxysmal Qualified Code(s): I48.0 - Paroxysmal atrial fibrillation (4) Diastolic CHF, chronic Current Visit: No Status: Acute Assessment and plan: - Was on Lasix 20 mg PO daily at home. - Hold diuresis for now given current BLAKE on CKD. - Strict I/O and daily weight. (5) COPD (chronic obstructive pulmonary disease) Current Visit: No Status: Chronic Assessment and plan: - Bronchodilators, Symbicort and supplemental oxygen. Qualifiers: COPD type: unspecified COPD Qualified Code(s): J44.9 - Chronic obstructive pulmonary disease, unspecified - Subjective Interval history: This note is NOT for billing purpose. Patient was seen and examined this morning. Patient reports abdominal pain improves and no more nausea. Patient denies fever, chest pain, shortness of breath. - Constitutional Vitals: Temp Pulse Resp BP Pulse Ox 98.5 F 65 20 116/52 97 04/02/17 07:30 04/02/17 07:30 04/02/17 07:30 04/02/17 07:30 04/02/17 07:30 General appearance: Present: A&O X 3, no acute distress, answers questions appropriately - Head Head exam: Present: atraumatic, normocephalic - Eye Eye exam: Present: EOMI, conjuntiva pink, sclera anicteric - Neck Neck exam general surgery: Present: supple, trachea midline. Absent: lymphadenopathy - Respiratory Respiratory exam: Present: CTAB. Absent: accessory muscle use, rales, rhonchi, wheezes - Cardiovascular Cardiovascular exam: Present: RRR, +S1, +S2. Absent: diastolic murmur, rubs, systolic murmur - GI/Abdominal GI/Abdominal exam: Present: normal bowel sounds, soft, tenderness (Diffuse). Absent: distended - Extremities Exam Extremities exam: Present: warm, radial pulses palpable and symmetrical. Absent : cyanotic, pedal edema - Neurological Exam Neurological exam: Present: alert, oriented X3, no focal deficits. Absent: facial droop, speech deficit - Skin Skin exam: Present: dry, warm Internal Medicine: Result - Labs CBC & Chem 7: 04/02/17 02:20 04/02/17 02:20 - VTE Documentation of Mechanical Device: Intermittent pneumatic compression device Consult Discharge Plan - Plan Referrals: aMrti Waite MD [Primary Care Provider] - <Cristian Riley - Last Filed: 12/19/17 17:43> Date of Encounter: 04/02/17 - Constitutional Vitals: Temp Pulse Resp BP Pulse Ox 99.0 F 72 23 114/49 97 04/02/17 15:26 04/02/17 15:26 04/02/17 15:26 04/02/17 15:26 04/02/17 15:26 Internal Medicine: Result - Labs CBC & Chem 7: 04/02/17 02:20 04/02/17 02:20 - Attending Attestation I conducted a face to face diagnostic evaluation of this patient and my medical decision-making was reviewed with the Resident Physician, Dr Omar Webster. I agree with the documented findings, disposition and treatment plan as described except to the extent set forth below: Patient's abdomen is soft and nontender. CT of the abdomen and pelvis findings have been reviewed. We will continue with Cipro and Flagyl for diverticulitis. All listed medical problems are new to me today. Cristian Riley MD
[2017-04-02] MEDS ORDERED: Ipratropium/Albuterol Neb 3 ML IH PRN (13:02)
[2017-04-02] MEDS ORDERED: *HR* Dextrose 50 % in Water (Syg) 50 ML SYRINGE IVP PRN (15:19)
[2017-04-02] MEDS ORDERED: Dextrose Gel 15 GM PO PRN ×2 (15:19)
[2017-04-02] MEDS ORDERED: D5% in Water 1,000 ML IVC PRN (15:19)
[2017-04-02] MEDS: Insulin LISPRO 300 UNITS/3 ML VIAL SQ SCH ×2 (18:12→20:30)
[2017-04-02] MEDS: *HR* Heparin 5,000 UNIT/ML VIAL SQ SCH (18:15)
[2017-04-02] MEDS: *HR* HYDROcodone/Acet 5/325 mg TABLET PO PRN (18:15)
[2017-04-02] MEDS: Budesonide/Formoterol 160/4.5 MDI IH SCH (20:17)
[2017-04-03 05:17] LABS: Basophils % 0.1 %; Hematocrit 29.2 % (35.3-44.9); Hemoglobin A1C 5.1 %; Immature Granulocytes % 3.3 % (0-4); Lymphocytes # 0.6 K/mcL (0.6-4.6); Lymphocytes % 3.1 %; Mean Corpuscular HGB Conc 31.2 g/dL (31.6-35.5); Mean Corpuscular Hemoglobin 26.1 pg (28.0-33.3); Mean Corpuscular Volume 83.7 fL (83.0-100.0); Mean Platelet Volume 10.3 fL (9.4-12.4); Monocytes # 2.7 K/mcL (0.0-1.3); Monocytes % 12.8 %; Neutrophils # 16.9 K/mcL (1.6-8.9); Platelet Count 160 K/mcL (140-400); Red Blood Count 3.49 M/mcL (3.82-4.97); Red Cell Distribution Width 17.4 % (11.5-14.5); Segmented Neutrophils % 80.7 %
[2017-04-03 05:29] LABS: Hemoglobin 9.1 g/dL (11.5-15.4)
[2017-04-03 05:35] LABS: Calcium 8.6 mg/dL (8.6-10.3); Potassium 3.8 mEq/L (3.5-5.1)
[2017-04-03] MEDS: *HR* Heparin 5,000 UNIT/ML VIAL SQ SCH ×2 (06:14→19:15)
[2017-04-03] MEDS: Budesonide/Formoterol 160/4.5 MDI IH SCH ×2 (07:51→22:15)
[2017-04-03] MEDS: Insulin LISPRO 300 UNITS/3 ML VIAL SQ SCH ×3 (08:28→19:12)
[2017-04-03] MEDS: Aspirin Enteric Coated 81 MG Tablet PO SCH (08:36)
--- NOTE | 2017-04-03 09:06 | Internal Med Progress Note ---
<Omar Webster - Last Filed: 04/03/17 11:54> Date of Encounter: 04/03/17 Time of Encounter: 08:00 - Assessment and plan (1) Sepsis Current Visit: Yes Status: Acute Assessment and plan: - 2 SIRS criteria (tachycardia and leukocytosis) with lactic acid 2.7 on admission. - Likely secondary to sigmoid diverticulitis as seen on CT A/P. - Blood cultures pending. - Patient had received 2L of IV NS in ED. Continue hydration with IV fluid cautiously given her CHF history. - Improves as tachycardia resolved and lactic acid dropped to 1.4 on repeat. - Continue empirical antibiotics: renally dosed Flagyl (since 03/23) and change from Cipro to Zosyn for broader coverage. - Continue to monitor. Qualifiers: Sepsis type: sepsis due to unspecified organism Qualified Code(s): A41.9 - Sepsis, unspecified organism (2) Sigmoid diverticulitis Current Visit: No Status: Acute Assessment and plan: - One-day history of abdominal pain with nausea on initial presentation. - CT A/P found severe descending colon and sigmoid colon diverticulosis with superimposed extensive sigmoid colitis and wall thickening and adjacent micro perforation. No abscess formation. - Continue hydration with IV fluid. - Strict NPO - IV morphine prn for pain control. - Continue to monitor. - Continue empirical antibiotics: renally dosed Flagyl (since 03/23) and change from Cipro to Zosyn for broader coverage. - Patient states she does not want surgery. Patient changed her code status to [id number] after lengthy discussion with attending Dr. Riley. (3) Acute renal failure superimposed on stage 3 chronic kidney disease Current Visit: No Status: Acute Assessment and plan: - SCr 1.9 on admission, worsen compared to baseline around 1.4. - Likely secondary to dehydration in the setting of poor oral intake and diuretic use. - Slightly improves as SCr 1.79 today. - Hydration with IV fluid. - Avoid nephrotoxin. - Continue to monitor renal function and electrolytes closely. Qualifiers: Acute renal failure type: unspecified Qualified Code(s): N17.9 - Acute kidney failure, unspecified; N18.3 - Chronic kidney disease, stage 3 (moderate) ; N18.3 - Chronic kidney disease, stage 3 (moderate) (4) Afib Current Visit: No Status: Chronic Assessment and plan: - Rate-controlled. - Continue metoprolol for rate control. - Not on anticoagulation due to significant risk for GI bleed. Qualifiers: Atrial fibrillation type: paroxysmal Qualified Code(s): I48.0 - Paroxysmal atrial fibrillation (5) Diastolic CHF, chronic Current Visit: No Status: Acute Assessment and plan: - Was on Lasix 20 mg PO daily at home. - Hold diuresis for now given current BLAKE on CKD. - Strict I/O and daily weight. - Net +3300 mL so far. No rales noted auscultation of lungs nor significant edema. (6) COPD (chronic obstructive pulmonary disease) Current Visit: No Status: Chronic Assessment and plan: - Continue bronchodilators, Symbicort and supplemental oxygen. Qualifiers: COPD type: unspecified COPD Qualified Code(s): J44.9 - Chronic obstructive pulmonary disease, unspecified (7) DVT prophylaxis Current Visit: No Status: Acute Assessment and plan: - Continue SQ heparin. - Subjective Interval history: Patient was seen and examined this morning. Patient still complains of abdominal pain, mostly at left lower quadrant. Patient reports having bowel movement this morning and it's brown color without any blood. Patient denies fever, nausea, vomiting, chest pain, shortness of breath. Patient states that given her age, she does not want surgery. - Constitutional Vitals: Temp Pulse Resp BP Pulse Ox 99 F 64 15 117/57 93 04/03/17 07:26 04/03/17 07:26 04/03/17 07:26 04/03/17 07:26 04/03/17 07:26 General appearance: Present: A&O X 3, no acute distress, answers questions appropriately - Head Head exam: Present: atraumatic, normocephalic - Eye Eye exam: Present: EOMI, conjuntiva pink, sclera anicteric - Neck Neck exam general surgery: Present: supple, trachea midline. Absent: lymphadenopathy - Respiratory Respiratory exam: Present: wheezes. Absent: accessory muscle use, rales, rhonchi - Cardiovascular Cardiovascular exam: Present: RRR, +S1, +S2. Absent: diastolic murmur, gallop, rubs, systolic murmur - GI/Abdominal GI/Abdominal exam: Present: normal bowel sounds, soft, tenderness (Diffuse but more at left lower quadrant). Absent: distended - Extremities Exam Extremities exam: Present: warm, radial pulses palpable and symmetrical. Absent : cyanotic, pedal edema - Neurological Exam Neurological exam: Present: oriented X3, no focal deficits. Absent: facial droop, speech deficit - Skin Skin exam: Present: dry, intact, warm Internal Medicine: Result - Labs CBC & Chem 7: 04/03/17 04:50 04/03/17 04:50 Labs: Short CBC 04/03/17 Range/Units 04:50 WBC 20.9 H (4.3-11.1) K/mcL Hgb 9.1 L D (11.5-15.4) g/dL Hct 29.2 L (35.3-44.9) % Plt Count 160 (140-400) K/mcL Neutrophils # 16.9 H (1.6-8.9) K/mcL BMP 04/03/17 04:50 Sodium 133 L Potassium 3.8 Chloride 99 Carbon Dioxide 24 BUN 44 H Creatinine 1.79 H Glucose 95 Calcium 8.6 - VTE Documentation of Mechanical Device: Intermittent pneumatic compression device Consult Discharge Plan - Plan Referrals: Marti Waite MD [Primary Care Provider] - 04/12/17 1:45 pm <Cristian Riley - Last Filed: 04/03/17 18:02> Date of Encounter: 04/03/17 - Constitutional Vitals: Temp Pulse Resp BP Pulse Ox 98.2 F 58 15 97/66 96 04/03/17 17:00 04/03/17 17:00 04/03/17 17:00 04/03/17 17:00 04/03/17 17:00 Internal Medicine: Result - Labs CBC & Chem 7: 04/03/17 15:55 04/03/17 04:50 Labs: Short CBC 04/03/17 04/03/17 Range/Units 04:50 15:55 WBC 20.9 H (4.3-11.1) K/mcL Hgb 9.1 L D 9.1 L (11.5-15.4) g/dL Hct 29.2 L 28.6 L (35.3-44.9) % Plt Count 160 (140-400) K/mcL Neutrophils # 16.9 H (1.6-8.9) K/mcL BMP 04/03/17 04:50 Sodium 133 L Potassium 3.8 Chloride 99 Carbon Dioxide 24 BUN 44 H Creatinine 1.79 H Glucose 95 Calcium 8.6 - Attending Attestation I conducted a face to face diagnostic evaluation of this patient and my medical decision-making was reviewed with the Resident Physician, Dr Omar Webster. I agree with the documented findings, disposition and treatment plan as described except to the extent set forth below: Patient's abdomen is more tender today on my examination. Otherwise she appears nontoxic in no acute distress heart is regular lungs are clear. She appears quite comfortable at rest. White blood cell count is increased from yesterday. We will de-escalate antibiotic therapy adding Zosyn for better gram-negative coverage and discontinue Cipro. Patient clearly stated to me that she wishes to have no resuscitation or mechanical ventilation in the event of cardiac or respiratory arrest. On my evaluation she has decision-making capacity. I will enter DNR/DNI. Cristian Riley MD
[2017-04-03] MEDS: MetroNIDAZOLE 500 MG/100 ML 500 MG/100 ML BAG IVPB SCH ×2 (09:18→16:21)
[2017-04-03] MEDS ORDERED: Piperacillin/Tazobactam 3.375 GM/200 ML BAG IVPB SCH (11:00)
[2017-04-03] MEDS: Piperacillin/Tazobactam 3.375 GM/200 ML BAG IVPB SCH ×2 (11:50→23:05)
[2017-04-03 16:13] LABS: Hematocrit 28.6 % (35.3-44.9); Hemoglobin 9.1 g/dL (11.5-15.4)
[2017-04-03] MEDS: *HR* HYDROcodone/Acet 5/325 mg TABLET PO PRN (22:15)
[2017-04-04] MEDS: Insulin LISPRO 300 UNITS/3 ML VIAL SQ SCH ×3 (00:47→11:51)
[2017-04-04] MEDS: MetroNIDAZOLE 500 MG/100 ML 500 MG/100 ML BAG IVPB SCH ×3 (00:49→16:15)
[2017-04-04 04:51] LABS: Basophils % 0.2 %; Eosinophils % 0.1 %; Hematocrit 27.4 % (35.3-44.9); Hemoglobin 8.6 g/dL (11.5-15.4); Immature Granulocytes % 4.4 % (0-4); Lymphocytes # 0.4 K/mcL (0.6-4.6); Lymphocytes % 3.3 %; Mean Corpuscular HGB Conc 31.4 g/dL (31.6-35.5); Mean Corpuscular Hemoglobin 26.1 pg (28.0-33.3); Mean Platelet Volume 10.5 fL (9.4-12.4); Monocytes # 2.4 K/mcL (0.0-1.3); Monocytes % 18.4 %; Neutrophils # 9.6 K/mcL (1.6-8.9); Platelet Count 148 K/mcL (140-400); Red Cell Distribution Width 17.4 % (11.5-14.5); Segmented Neutrophils % 73.6 %
[2017-04-04] MEDS: *HR* Heparin 5,000 UNIT/ML VIAL SQ SCH ×2 (05:55→18:06)
[2017-04-04 06:03] LABS: Platelet Estimate Slight Decrease (Normal)
[2017-04-04 06:06] LABS: Polychromasia 1+ (Not Present)
[2017-04-04 06:08] LABS: Poikilocytosis 1+ (Not Present)
[2017-04-04] MEDS: Ondansetron 4 MG/2 ML VIAL IVP PRN (07:53)
[2017-04-04] MEDS: Budesonide/Formoterol 160/4.5 MDI IH SCH ×2 (08:01→21:58)
[2017-04-04] MEDS: *HR* HYDROcodone/Acet 5/325 mg TABLET PO PRN ×2 (08:37→20:33)
[2017-04-04] MEDS: Aspirin Enteric Coated 81 MG Tablet PO SCH (08:37)
--- NOTE | 2017-04-04 09:06 | Internal Med Progress Note ---
<Omar Webster - Last Filed: 04/04/17 12:58> Date of Encounter: 04/04/17 Time of Encounter: 07:45 - Assessment and plan (1) Sepsis Current Visit: Yes Status: Acute Assessment and plan: - 2 SIRS criteria (tachycardia and leukocytosis) with lactic acid 2.7 on admission. - Likely secondary to sigmoid diverticulitis as seen on CT A/P. - Blood cultures pending. - Patient had received 2L of IV NS in ED. Continue hydration with PO fluid if tolerable. - Improves as tachycardia resolved and lactic acid dropped to 1.4 on repeat. - Continue empirical antibiotics: renally dosed IV Flagyl (since 04/02) and Zosyn (since 04/03). - Continue to monitor closely. Qualifiers: Sepsis type: sepsis due to unspecified organism Qualified Code(s): A41.9 - Sepsis, unspecified organism (2) Sigmoid diverticulitis Current Visit: No Status: Acute Assessment and plan: - One-day history of abdominal pain with nausea on initial presentation. - CT A/P found severe descending colon and sigmoid colon diverticulosis with superimposed extensive sigmoid colitis and wall thickening and adjacent micro perforation. No abscess formation. - Continue hydration with PO fluid. - IV morphine prn for pain control. - Continue to monitor. - Improves as leukocytosis and abdominal pain decreased. Okay to advance to clear liquid diet. - Continue empirical antibiotics: renally dosed IV Flagyl (since 04/02) and Zosyn (since 04/03). - Patient does not want surgery and her code status had been changed to DNR-CCA- DNI after lengthy discussion with attending Dr. Riley. (3) Acute renal failure superimposed on stage 3 chronic kidney disease Current Visit: No Status: Acute Assessment and plan: - SCr 1.9 on admission, worsen compared to baseline around 1.4. - Likely secondary to dehydration in the setting of poor oral intake and diuretic use. - Slightly worsen as SCr 2.06 today. - Hydration with PO fluid. - Avoid nephrotoxin. - Continue to monitor renal function and electrolytes closely. Qualifiers: Acute renal failure type: unspecified Qualified Code(s): N17.9 - Acute kidney failure, unspecified; N18.3 - Chronic kidney disease, stage 3 (moderate) ; N18.3 - Chronic kidney disease, stage 3 (moderate) (4) Afib Current Visit: No Status: Chronic Assessment and plan: - Rate-controlled. - Continue metoprolol for rate control. - Not on anticoagulation due to significant risk for GI bleed. Qualifiers: Atrial fibrillation type: paroxysmal Qualified Code(s): I48.0 - Paroxysmal atrial fibrillation (5) Diastolic CHF, chronic Current Visit: No Status: Acute Assessment and plan: - Was on Lasix 20 mg PO daily at home. - Hold diuresis for now given current BLAKE on CKD. - Strict I/O and daily weight. - Net +3920 mL so far. No rales on auscultation of lungs nor significant edema on exam. (6) COPD (chronic obstructive pulmonary disease) Current Visit: No Status: Chronic Assessment and plan: - Continue bronchodilators, Symbicort and supplemental oxygen. Qualifiers: COPD type: unspecified COPD Qualified Code(s): J44.9 - Chronic obstructive pulmonary disease, unspecified (7) DVT prophylaxis Current Visit: No Status: Acute Assessment and plan: - Continue SQ heparin. - Subjective Interval history: Patient was seen and examined this morning. Patient reports abdominal pain improves compared to yesterday. Patient has some nausea this morning but Zofran seems to help. Patient reports having bowel movement this morning and it's loosen and brown color without any blood. Patient denies fever, chills, chest pain, shortness of breath. - Constitutional Vitals: Temp Pulse Resp BP Pulse Ox 99.2 F 108 18 116/79 91 04/04/17 07:44 04/04/17 07:44 04/04/17 08:02 04/04/17 07:44 04/04/17 08:02 General appearance: Present: A&O X 3, no acute distress, answers questions appropriately - Head Head exam: Present: atraumatic, normocephalic - Eye Eye exam: Present: EOMI, conjuntiva pink, sclera anicteric - Neck Neck exam general surgery: Present: supple, trachea midline. Absent: lymphadenopathy - Respiratory Respiratory exam: Present: CTAB. Absent: accessory muscle use, rales, rhonchi, wheezes - Cardiovascular Cardiovascular exam: Present: RRR, +S1, +S2. Absent: diastolic murmur, gallop, rubs, systolic murmur - GI/Abdominal GI/Abdominal exam: Present: normal bowel sounds, soft, tenderness (Diffuse, mostly at left lower quadrant.). Absent: distended - Extremities Exam Extremities exam: Present: warm, radial pulses palpable and symmetrical. Absent : calf tenderness, cyanotic, pedal edema - Neurological Exam Neurological exam: Present: oriented X3, no focal deficits. Absent: facial droop, speech deficit - Skin Skin exam: Present: dry, intact, warm Internal Medicine: Result - Labs CBC & Chem 7: 04/04/17 04:20 04/04/17 04:20 Labs: Short CBC 04/03/17 04/04/17 Range/Units 15:55 04:20 WBC 13.1 H (4.3-11.1) K/mcL Hgb 9.1 L 8.6 L (11.5-15.4) g/dL Hct 28.6 L 27.4 L (35.3-44.9) % Plt Count 148 (140-400) K/mcL Neutrophils # 9.6 H (1.6-8.9) K/mcL - VTE Documentation of Mechanical Device: Intermittent pneumatic compression device Consult Discharge Plan - Plan Referrals: Marti Waite MD [Primary Care Provider] - 04/12/17 1:45 pm <Cristian Riley - Last Filed: 04/05/17 07:46> Date of Encounter: 04/04/17 - Constitutional Vitals: Temp Pulse Resp BP Pulse Ox 98.4 F 90 16 93/60 92 04/05/17 04:42 04/05/17 04:42 04/05/17 04:42 04/05/17 04:42 04/05/17 04:42 Internal Medicine: Result - Labs CBC & Chem 7: 04/05/17 03:45 04/05/17 03:45 Labs: Short CBC 04/05/17 Range/Units 03:45 WBC 6.8 (4.3-11.1) K/mcL Hgb 10.3 L D (11.5-15.4) g/dL Hct 32.7 L (35.3-44.9) % Plt Count 116 L (140-400) K/mcL Neutrophils # 4.6 (1.6-8.9) K/mcL BMP 04/04/17 04/05/17 04:20 03:45 Sodium 134 L 131 L Potassium 3.6 3.2 L Chloride 100 104 Carbon Dioxide 18 L 18 L BUN 55 H 53 H Creatinine 2.06 H 1.91 H Glucose 69 L 179 H Calcium 8.5 L 7.4 L - Attending Attestation I conducted a face to face diagnostic evaluation of this patient and my medical decision-making was reviewed with the Resident Physician, Dr Omar Webster. I agree with the documented findings, disposition and treatment plan as described except to the extent set forth below: Patient reports improvement in abdominal pain since yesterday. On exam she is in no acute distress awake alert oriented. Heart is regular S1- S2. Abdomen is soft. Plan: Continue with antibiotics Zosyn and Flagyl. We will obtain PT OT consult. Social work consult for possible placement. Cristian Riley MD
[2017-04-04 09:13] LABS: Calcium 8.5 mg/dL (8.6-10.3); Potassium 3.6 mEq/L (3.5-5.1)
[2017-04-04] MEDS ORDERED: Calcium Gluconate 2,000 MG in D5% in Water 100 ML IVPB ONE (09:43)
[2017-04-04 10:16] LABS: Magnesium 2.1 mg/dL (1.6-2.6)
[2017-04-04] MEDS: Piperacillin/Tazobactam 3.375 GM/200 ML BAG IVPB SCH (11:52)
[2017-04-05] MEDS: Piperacillin/Tazobactam 3.375 GM/200 ML BAG IVPB SCH ×2 (00:19→11:27)
[2017-04-05] MEDS: MetroNIDAZOLE 500 MG/100 ML 500 MG/100 ML BAG IVPB SCH ×3 (01:11→17:24)
[2017-04-05 04:00] LABS: Basophils % 0.1 %; Eosinophils % 0.1 %; Hematocrit 32.7 % (35.3-44.9); Immature Granulocytes % 2.1 % (0-4); Lymphocytes # 0.3 K/mcL (0.6-4.6); Lymphocytes % 3.8 %; Mean Corpuscular HGB Conc 31.5 g/dL (31.6-35.5); Mean Corpuscular Hemoglobin 26.3 pg (28.0-33.3); Mean Corpuscular Volume 83.4 fL (83.0-100.0); Monocytes # 1.8 K/mcL (0.0-1.3); Monocytes % 25.8 %; Neutrophils # 4.6 K/mcL (1.6-8.9); Platelet Count 116 K/mcL (140-400); Red Blood Count 3.92 M/mcL (3.82-4.97); Red Cell Distribution Width 17.2 % (11.5-14.5); Segmented Neutrophils % 68.1 %
[2017-04-05 04:17] LABS: Calcium 7.4 mg/dL (8.6-10.3); Potassium 3.2 mEq/L (3.5-5.1)
[2017-04-05 04:57] LABS: Hemoglobin 10.3 g/dL (11.5-15.4)
[2017-04-05 04:59] LABS: Anisocytosis 1+ (Not Present); Microcytosis Present (Not Present); Platelet Estimate Decreased (Normal)
[2017-04-05] MEDS: *HR* Heparin 5,000 UNIT/ML VIAL SQ SCH ×2 (05:30→17:24)
[2017-04-05] MEDS ORDERED: Calcium Gluconate 2,000 MG in D5% in Water 100 ML IVPB ONE (08:01)
[2017-04-05] MEDS ORDERED: Potassium Chloride 40 MEQ, Lidocaine 1% 2 ML in D5% in Water 500 ML IVPB ONE (08:01)
[2017-04-05] MEDS: Aspirin Enteric Coated 81 MG Tablet PO SCH (08:33)
[2017-04-05] MEDS: *HR* HYDROcodone/Acet 5/325 mg TABLET PO PRN (08:34)
[2017-04-05] MEDS: Budesonide/Formoterol 160/4.5 MDI IH SCH (08:37)
--- NOTE | 2017-04-05 08:55 | Internal Med Progress Note ---
<Omar Webster - Last Filed: 04/05/17 09:49> Date of Encounter: 04/05/17 Time of Encounter: 07:45 - Assessment and plan (1) Sigmoid diverticulitis Current Visit: No Status: Acute Assessment and plan: - One-day history of abdominal pain with nausea on initial presentation. - CT A/P found severe descending colon and sigmoid colon diverticulosis with superimposed extensive sigmoid colitis and wall thickening and adjacent micro perforation. No abscess formation. - Continue hydration with PO fluid. - IV morphine prn for pain control. - Continue to monitor. - Improves as abdominal pain decreased and WBC normalized. - Okay to advance diet if patient can tolerate. - Continue empirical antibiotics: renally dosed Zosyn (since 04/03). Will discontinue Flagyl. The antibiotic therapy duration for diverticulitis is typically 5 days. - Patient does not want surgery and her code status had been changed to DNR-CCA- DNI after lengthy discussion with attending Dr. Riley. (2) Sepsis Current Visit: Yes Status: Resolved Assessment and plan: - 2 SIRS criteria (tachycardia and leukocytosis) with lactic acid 2.7 on admission. - Likely secondary to sigmoid diverticulitis as seen on CT A/P. - Blood cultures NGTD - Patient had received 2L of IV NS in ED. Continue hydration with PO fluid if tolerable. - Resolved as heart rate and WBC normalized with lactic acid dropped to 1.4 on repeat. - Continue empirical antibiotics: renally dosed Zosyn (since 04/03). Will discontinue Flagyl. Qualifiers: Sepsis type: sepsis due to unspecified organism Qualified Code(s): A41.9 - Sepsis, unspecified organism (3) Acute renal failure superimposed on stage 3 chronic kidney disease Current Visit: No Status: Acute Assessment and plan: - SCr 1.9 on admission, worsen compared to baseline around 1.4. - Likely secondary to dehydration in the setting of poor oral intake and diuretic use. - Slightly improves as SCr decreased to 1.91 today (was 2.06 yesterday) - Hydration with PO fluid. - Avoid nephrotoxin. - Continue to monitor renal function and electrolytes closely. Qualifiers: Acute renal failure type: unspecified Qualified Code(s): N17.9 - Acute kidney failure, unspecified; N18.3 - Chronic kidney disease, stage 3 (moderate) ; N18.3 - Chronic kidney disease, stage 3 (moderate) (4) Hypokalemia Current Visit: Yes Status: Acute Assessment and plan: - K 3.2 today. Mg normal (2.0). - Give KCl 40 meq IV. - Continue to monitor. (5) Hypocalcemia Current Visit: Yes Status: Acute Assessment and plan: - Ca 7.4 today. - Will give 2 gram of Ca gluconate IV. - Continue to monitor. (6) Afib Current Visit: No Status: Chronic Assessment and plan: - Rate-controlled. - Continue metoprolol for rate control. - Not on anticoagulation due to significant risk for GI bleed. Qualifiers: Atrial fibrillation type: paroxysmal Qualified Code(s): I48.0 - Paroxysmal atrial fibrillation (7) Diastolic CHF, chronic Current Visit: No Status: Acute Assessment and plan: - Was on Lasix 20 mg PO daily at home. - Hold diuresis for now given current BLAKE on CKD. - Strict I/O and daily weight. - Net +4520 mL so far. No rales on auscultation of lungs nor significant edema on exam. (8) COPD (chronic obstructive pulmonary disease) Current Visit: No Status: Chronic Assessment and plan: - Continue bronchodilators, Symbicort and supplemental oxygen. Qualifiers: COPD type: unspecified COPD Qualified Code(s): J44.9 - Chronic obstructive pulmonary disease, unspecified (9) DVT prophylaxis Current Visit: No Status: Acute Assessment and plan: - Continue SQ heparin. - Subjective Interval history: Patient was seen and examined this morning. Patient reports abdominal pain continues to improve. Patient is tolerating liquid diet. Patient denies fever, chills, chest pain, shortness of breath, nausea, vomiting. - Constitutional Vitals: Temp Pulse Resp BP Pulse Ox 97.4 F L 103 18 107/51 94 04/05/17 07:28 04/05/17 08:47 04/05/17 07:28 04/05/17 07:28 04/05/17 08:47 General appearance: Present: A&O X 3, no acute distress, answers questions appropriately - Head Head exam: Present: atraumatic, normocephalic - Eye Eye exam: Present: EOMI, conjuntiva pink, sclera anicteric - Neck Neck exam general surgery: Present: supple, trachea midline - Respiratory Respiratory exam: Present: CTAB. Absent: accessory muscle use, rales, rhonchi, wheezes - Cardiovascular Cardiovascular exam: Present: RRR, +S1, +S2. Absent: diastolic murmur, gallop, rubs, systolic murmur - GI/Abdominal GI/Abdominal exam: Present: normal bowel sounds, soft, tenderness (Left lower quadrant). Absent: distended - Extremities Exam Extremities exam: Present: warm, radial pulses palpable and symmetrical. Absent : cyanotic, pedal edema - Neurological Exam Neurological exam: Present: alert, oriented X3, no focal deficits. Absent: facial droop, speech deficit - Skin Skin exam: Present: dry, warm Internal Medicine: Result - Labs CBC & Chem 7: 04/05/17 03:45 04/05/17 03:45 Labs: Short CBC 04/05/17 Range/Units 03:45 WBC 6.8 (4.3-11.1) K/mcL Hgb 10.3 L D (11.5-15.4) g/dL Hct 32.7 L (35.3-44.9) % Plt Count 116 L (140-400) K/mcL Neutrophils # 4.6 (1.6-8.9) K/mcL BMP 04/04/17 04/05/17 04:20 03:45 Sodium 134 L 131 L Potassium 3.6 3.2 L Chloride 100 104 Carbon Dioxide 18 L 18 L BUN 55 H 53 H Creatinine 2.06 H 1.91 H Glucose 69 L 179 H Calcium 8.5 L 7.4 L - VTE Documentation of Mechanical Device: Intermittent pneumatic compression device Consult Discharge Plan - Plan Instructions: Hydrocodone/Acetaminophen (By mouth), Amoxicillin/Clavulanate Potassium (By mouth), Diverticulitis (DC) Additional Instructions: Please take prescribed Amoxicillin/Clavulanate (Augmentin) 500 mg by mouth every 12 hours for 2 days to finish total 5-day course of antibiotic therapy. You can use prescribed hydrocodone/acetaminophen ([place]) 5-325 1 tablet by mouth every 6 hours as needed for your abdominal pain (20 pills, no refill) Please follow up with your primary care provider within a week. Referrals: Marti Waite MD [Primary Care Provider] - (patient is going to [facility] no pcp appointment is needed) Prescriptions: HYDROcodone/Acet 5/325 mg [[place] 5-325 mg] 1 tab PO Q6HR PRN #20 tablet PRN Reason: Pain Amoxicillin/Clavulanate [Augmentin] 500 mg PO BIDWM #4 tablet <Cristian Rliey - Last Filed: 04/05/17 18:07> Date of Encounter: 04/05/17 - Constitutional Vitals: Temp Pulse Resp BP Pulse Ox 97.7 F 99 15 114/60 98 04/05/17 11:51 04/05/17 11:51 04/05/17 11:51 04/05/17 11:51 04/05/17 11:51 Internal Medicine: Result - Labs CBC & Chem 7: 04/05/17 03:45 04/05/17 03:45 Labs: Short CBC 04/05/17 Range/Units 03:45 WBC 6.8 (4.3-11.1) K/mcL Hgb 10.3 L D (11.5-15.4) g/dL Hct 32.7 L (35.3-44.9) % Plt Count 116 L (140-400) K/mcL Neutrophils # 4.6 (1.6-8.9) K/mcL BMP 04/05/17 03:45 Sodium 131 L Potassium 3.2 L Chloride 104 Carbon Dioxide 18 L BUN 53 H Creatinine 1.91 H Glucose 179 H Calcium 7.4 L - Attending Attestation I conducted a face to face diagnostic evaluation of this patient and my medical decision-making was reviewed with the Resident Physician. I agree with the documented findings, disposition and treatment plan as described except to the extent set forth below: Patient has none no acute distress awake alert oriented. Heart is regular. Lungs are clear. Abdomen is soft, nontender. Plan: Continue with IV Zosyn. Advance diet. Cristian Riley MD
[2017-04-05] MEDS: Ondansetron 4 MG/2 ML VIAL IVP PRN (10:45)
[2017-04-05 11:56] VITALS: BP 114/60
--- NOTE | 2017-04-05 13:58 | Discharge Summary ---
<Omar Webster - Last Filed: 04/05/17 15:13> Date of Encounter: 04/05/17 Time of Encounter: 13:30 - Discharge Diagnosis (1) Sigmoid diverticulitis Priority: Primary Status: Acute (2) Sepsis Priority: Secondary Status: Resolved Qualifiers: Sepsis type: sepsis due to unspecified organism Qualified Code(s): A41.9 - Sepsis, unspecified organism (3) Acute renal failure superimposed on stage 3 chronic kidney disease Priority: Secondary Status: Acute Qualifiers: Acute renal failure type: unspecified Qualified Code(s): N17.9 - Acute kidney failure, unspecified; N18.3 - Chronic kidney disease, stage 3 (moderate) ; N18.3 - Chronic kidney disease, stage 3 (moderate) (4) Hypokalemia Priority: Secondary Status: Acute (5) Hypocalcemia Priority: Secondary Status: Acute (6) Afib Priority: Secondary Status: Chronic Qualifiers: Atrial fibrillation type: paroxysmal Qualified Code(s): I48.0 - Paroxysmal atrial fibrillation (7) Diastolic CHF, chronic Priority: Secondary Status: Acute (8) COPD (chronic obstructive pulmonary disease) Priority: Secondary Status: Chronic Qualifiers: COPD type: unspecified COPD Qualified Code(s): J44.9 - Chronic obstructive pulmonary disease, unspecified - Discharge Medications Prescriptions: HYDROcodone/Acet 5/325 mg [[place] 5-325 mg] 1 tab PO Q6HR PRN #20 tablet PRN Reason: Pain Amoxicillin/Clavulanate [Augmentin] 500 mg PO BIDWM #4 tablet Home Medications: Atorvastatin Calcium [Lipitor] 20 mg PO HS 10/22/15 [History] Budesonide/Formoterol 160/4.5 [Symbicort 160/4.5] 2 puff IH BIDR 10/22/15 [ History] Oxygen 1 each .ROUTE AD 10/22/15 [History] Aspirin [Lo-Dose Aspirin EC] 81 mg PO DAILY 01/09/17 [History] Fexofenadine/Pseudoephedrine [Jackie-D 12 Hour Tablet] 180 mg PO DAILY PRN [History] Furosemide [Lasix] 20 mg PO DAILY 01/09/17 [History] HydrOXYzine 25 mg PO TID 01/09/17 [History] Inulin/Chromium Picolinate [Fiber Gummies] 1 each PO DAILY 01/09/17 [History] Lactobacillus Acidophilus [Acidophilus Probiotic] 1 mg PO DAILY 01/09/17 [ History] Levothyroxine [Synthroid] 50 mcg PO 0630 01/09/17 [History] Metoprolol Tartrate [Lopressor] 25 mg PO BID 01/09/17 [History] Multivitamin [Multi-Day Vitamins] 1 each PO DAILY 01/09/17 [History] Spironolactone [Aldactone] 50 mg PO DAILY 01/09/17 [History] Ubidecarenone [Co Q-10] 200 mg PO DAILY 01/09/17 [History] metOLazone [Zaroxolyn] 5 mg PO DAILY 01/09/17 [History] Lifitegrast [Xiidra] 1 drop BOTH EYES BID 04/02/17 [History] Amoxicillin/Clavulanate [Augmentin] 500 mg PO BIDWM #4 tablet 04/05/17 [Rx] HYDROcodone/Acet 5/325 mg [[place] 5-325 mg] 1 tab PO Q6HR PRN #20 tablet [Rx] Allergies/Adverse Reactions: 3 Allergy/AdvReac Type Severity Reaction Status Date / Time iodine AdvReac Mild Drowsy Verified 04/02/17 02:02 quinidine AdvReac Lethargic Verified 04/02/17 02:02 Date of admission: 04/02/17 04:25 Primary care physician: Marti Waite Consults: 04/04/17 10:25 Consult to Physical Therapy [CONS] Routine Comment: Evaluate, develop and implement POC Reason for Consult: discharge planning OT [Consult to Occupational Therapy] [CONS] Routine Comment: Evaluate, develop and implement POC Reason for Consult: discharge planning 04/04/17 15:00 Consult to Tip Printer [CONS] Routine Reason for SW Consult: PT/OT recommends SNF. Appreciate assistance regarding placement. Discharging clinician: Omar Webster Anticipated date of discharge: 04/05/17 - Patient Status Disposition: Transfer SNF Condition: Fair Functional capacity at discharge: uses cane/walker Overall status at discharge: patient is progressing back to baseline - Discharge Instructions Instructions: Hydrocodone/Acetaminophen (By mouth), Amoxicillin/Clavulanate Potassium (By mouth), Diverticulitis (DC) Follow Up With: Marti Waite MD [Primary Care Provider] - ([facility] is going to [facility] no pcp appointment is needed) Additional Instructions: Please take prescribed Amoxicillin/Clavulanate (Augmentin) 500 mg by mouth every 12 hours for 2 days to finish total 5-day course of antibiotic therapy. You can use prescribed hydrocodone/acetaminophen ([place]) 5-325 1 tablet by mouth every 6 hours as needed for your abdominal pain (20 pills, no refill) Please follow up with your primary care provider within a week. - Diet and Activity Activity: as per physical therapy, increase activity as tolerated Diet: diabetic diet Hospital course: Ms. Gomez is a 89 year-old female with PMH of DM2, HTN, COPD, paroxysmal A-fib and diastolic CHF who presented to [place] ED for 1-day history of worsening abdominal pain and nausea. In ED, patient was noted to have tachycardia and leukocytosis (WBC 18.5). CT A/P found severe descending colon and sigmoid colon diverticulosis with superimposed extensive sigmoid colitis, wall thickening and adjacent micro perforation but no abscess formation. Patient was admitted on for sigmoid diverticulit and started on IV Cipro and Flagyl. Patients left lower quadrant abdominal pain and leukocytosis (WBC 20.9) got worse on so IV Cipro was replaced with IV Zosyn. Patient also states that she does not want surgery and her code status is [id number]-DNI. Patients abdominal pain and leukocytosis improves since. PT/OT recommended SNF/ECF after discharge. On 04/05/17, patients abdominal pain had significantly improved and WBC normalized (6.8). Patient's renal function also slightly improved (SCr 1.91, was 2.06 the day before). Given patient improves clinically and remains hemodynamically stable, patient can be discharged to SNF [facility] with prescription of Amoxicillin/Clavulanate (Augmentin) 500 mg by mouth every 12 hours for 2 days to finish total 5-day course of antibiotic therapy. Patient can use prescribed hydrocodone/acetaminophen ([place]) 5-325 1 tablet by mouth every 6 hours as needed for abdominal pain (20 pills, no refill). Patient also needs follow-up with her primary care provider within a week. Patient expressed understanding and agreement with the discharge plan. All questions were answered. - Time Spent with Patient Total time spent providing and/or coordinating discharge services: Greater than 30 minutes (46 minutes) - Constitutional Vitals: Temp Pulse Resp BP Pulse Ox 97.7 F 99 15 114/60 98 04/05/17 11:51 04/05/17 11:51 04/05/17 11:51 04/05/17 11:51 04/05/17 11:51 General appearance: Present: A&O X 3, no acute distress, answers questions appropriately - Head Head exam: Present: atraumatic, normocephalic - Eye Eye exam: Present: EOMI, conjuntiva pink, sclera anicteric - Neck Neck exam general surgery: Present: normal inspection, supple, trachea midline - Respiratory Respiratory exam: Present: CTAB. Absent: accessory muscle use, rales, rhonchi, wheezes - Cardiovascular Cardiovascular exam: Present: RRR, +S1, +S2. Absent: diastolic murmur, systolic murmur - GI/Abdominal GI/Abdominal exam: Present: normal bowel sounds, soft, tenderness (Left lower quadrant, better compared to yesterday), no peritoneal signs. Absent: distended - Extremities Exam Extremities exam: Present: warm, radial pulses palpable and symmetrical. Absent : cyanotic, pedal edema - Neurological Exam Neurological exam: Present: alert, oriented X3, no focal deficits. Absent: facial droop, speech deficit - Skin Skin exam: Present: dry, intact, warm - VTE Documentation of Mechanical Device: Intermittent pneumatic compression device <Cristian Riley - Last Filed: 04/05/17 18:27> Date of Encounter: 04/05/17 Date of admission: 04/02/17 04:25 Primary care physician: Marti Waite Consults: 04/04/17 10:25 Consult to Physical Therapy [CONS] Routine Comment: Evaluate, develop and implement POC Reason for Consult: discharge planning OT [Consult to Occupational Therapy] [CONS] Routine Comment: Evaluate, develop and implement POC Reason for Consult: discharge planning 04/04/17 15:00 Consult to Tip Printer [CONS] Routine Reason for SW Consult: PT/OT recommends SNF. Appreciate assistance regarding placement. Hospital course: Ms. Gomez is a 89 year old female - Time Spent with Patient Total time spent providing and/or coordinating discharge services: - Constitutional Vitals: Temp Pulse Resp BP Pulse Ox 97.7 F 99 15 114/60 98 04/05/17 11:51 04/05/17 11:51 04/05/17 11:51 04/05/17 11:51 04/05/17 11:51 - Attending Attestation I conducted a face to face diagnostic evaluation of this patient and my medical decision-making was reviewed with the Resident Physician. I agree with the documented findings, disposition and treatment plan as described except to the extent set forth below: Patient tolerated diet. Pain is well controlled with oral medication. Abdomen is soft. White count has normalized. We will transition to oral antibiotics and discharge her to subacute rehabilitation. Cristian Riley MD
--- NOTE | 2017-04-05 15:16 | Physician Discharge Referral ---
ExtendedCare Referral Info Transfer To: [facility] Provider in Charge after Transfer: PCP Institutional Level of Care: Skilled - Diagnosis (1) Sigmoid diverticulitis Priority: Primary Status: Acute (2) Sepsis Priority: Secondary Status: Resolved (3) Acute renal failure superimposed on stage 3 chronic kidney disease Priority: Secondary Status: Acute (4) Hypokalemia Priority: Secondary Status: Acute (5) Hypocalcemia Priority: Secondary Status: Acute (6) Afib Priority: Secondary Status: Chronic (7) Diastolic CHF, chronic Priority: Secondary Status: Acute (8) COPD (chronic obstructive pulmonary disease) Priority: Secondary Status: Chronic - Transfer Medications Prescriptions: HYDROcodone/Acet 5/325 mg [[place] 5-325 mg] 1 tab PO Q6HR PRN #20 tablet PRN Reason: Pain Amoxicillin/Clavulanate [Augmentin] 500 mg PO BIDWM #4 tablet Home Medications: Atorvastatin Calcium [Lipitor] 20 mg PO HS 10/22/15 [History] Budesonide/Formoterol 160/4.5 [Symbicort 160/4.5] 2 puff IH BIDR 10/22/15 [ History] Oxygen 1 each .ROUTE AD 10/22/15 [History] Aspirin [Lo-Dose Aspirin EC] 81 mg PO DAILY 01/09/17 [History] Fexofenadine/Pseudoephedrine [Jackie-D 12 Hour Tablet] 180 mg PO DAILY PRN [History] Furosemide [Lasix] 20 mg PO DAILY 01/09/17 [History] HydrOXYzine 25 mg PO TID 01/09/17 [History] Inulin/Chromium Picolinate [Fiber Gummies] 1 each PO DAILY 01/09/17 [History] Lactobacillus Acidophilus [Acidophilus Probiotic] 1 mg PO DAILY 01/09/17 [ History] Levothyroxine [Synthroid] 50 mcg PO 0630 01/09/17 [History] Metoprolol Tartrate [Lopressor] 25 mg PO BID 01/09/17 [History] Multivitamin [Multi-Day Vitamins] 1 each PO DAILY 01/09/17 [History] Spironolactone [Aldactone] 50 mg PO DAILY 01/09/17 [History] Ubidecarenone [Co Q-10] 200 mg PO DAILY 01/09/17 [History] metOLazone [Zaroxolyn] 5 mg PO DAILY 01/09/17 [History] Lifitegrast [Xiidra] 1 drop BOTH EYES BID 04/02/17 [History] Amoxicillin/Clavulanate [Augmentin] 500 mg PO BIDWM #4 tablet 04/05/17 [Rx] HYDROcodone/Acet 5/325 mg [[place] 5-325 mg] 1 tab PO Q6HR PRN #20 tablet [Rx] Allergies/Adverse Reactions: 3 Allergy/AdvReac Type Severity Reaction Status Date / Time iodine AdvReac Mild Drowsy Verified 04/02/17 02:02 quinidine AdvReac Lethargic Verified 04/02/17 02:02 - Respiratory Orders Oxygen / L per min (2L NC as needed) Smoking Cessation: Smoking cessation has been advised. For more information, call the [facility] Tobacco Quit Line at 7-553-TQQV-NOW. - Advance Directives Code Status: DNR-Arrest/Don't Intubate - Mobility Orders Ambulate (with assistance) - Rehabiliation Orders Rehab Potential: Fair Rehab Orders: Evaluation for Physical Therapy, Evaluation for Occupational Therapy - Diet Orders No Concentrated Sweets (Diabetic diet) CERTIFICATION: I certify that the transfer of the above named patient to an Extended Care Facility is necessary for the continuing treatment of the diagnosis listed. The above information is true and accurate reflection of patient's current condition. Confidential - Redisclosure prohibited without a patient's written consent.
== END 2017-04-05 18:19 | DRG 872 ==
LOC: EMEROO 01:55 → SUATTDRO 04:25 → 2NNU 04:25
PROVIDERS: ADMIT Family Medicine; ATTEND Internal Medicine

== ENCOUNTER 2017-04-11 15:40 | Inpatient (IN) ==
[2017-04-11] MEDS ORDERED: 0.9 % Sodium Chloride 1,000 ML IVC ONE (15:46)
[2017-04-11] MEDS ORDERED: *HR* FentaNYL (PF) 100 MCG/2 ML VIAL IVP ONE ×3 (15:46→17:55)
[2017-04-11 16:05] LABS: Mean Corpuscular Volume 82.1 fL (83.0-100.0)
[2017-04-11 16:07] LABS: Hematocrit 34.3 % (35.3-44.9); Mean Corpuscular HGB Conc 32.1 g/dL (31.6-35.5); Mean Corpuscular Hemoglobin 26.3 pg (28.0-33.3); Mean Platelet Volume 9.7 fL (9.4-12.4); Platelet Count 387 K/mcL (140-400); Red Blood Count 4.18 M/mcL (3.82-4.97); Red Cell Distribution Width 17.7 % (11.5-14.5)
[2017-04-11 16:17] LABS: Albumin 3.2 g/dL (3.5-5.7); Albumin/Globulin Ratio 1.3 (1.1-2.2); Bilirubin,Direct 1.3 mg/dL (0.0-0.2); Bilirubin,Indirect 1.4 mg/dL (0.0-1.2); Bilirubin,Total 2.7 mg/dL (0.3-1.0); Calcium 9.1 mg/dL (8.6-10.3); Globulin 2.5 g/dL (2.4-3.5); Total Protein 5.7 g/dL (6.4-8.9)
--- NOTE | 2017-04-11 16:21 | Emergency Department Note ---
Disposition Clinical Impression: Perforation of intestine due to diverticulitis of gastrointestinal tract, Free intraperitoneal air, Hyponatremia, Elevated troponin I level, Acute kidney injury, Dehydration Abdominal pain Qualifiers: Abdominal location: lower abdomen, unspecified Qualified Code(s): R10.30 - Lower abdominal pain, unspecified Leukocytosis Qualifiers: Leukocytosis type: unspecified Qualified Code(s): D72.829 - Elevated white blood cell count, unspecified Sepsis Qualifiers: Sepsis type: sepsis due to unspecified organism Qualified Code(s): A41.9 - Sepsis, unspecified organism Disposition: Admitted As Inpatient Abdominal Pain HPI - General Chief Complaint: ED Abdominal Pain Stated Complaint: Abd Pain Time Seen by Provider: 04/11/17 15:44 Source: patient, EMS Nursing Notes Reviewed: Yes Vital Signs Reviewed: Yes - History of Present Illness HPI Narrative: 89-year-old female presents with abdominal pain over the last 4 days with nausea no vomiting, abdominal pain across lower abdomen 8/10 in intensity and sharp in his been constant. Patient status post recent diagnosis of severe diverticulosis with microperforation and colitis. Patient currently unable to tolerate by mouth and is feeling very ill. Pain Scale: 8 - Related Data Home Medications Medication Instructions Recorded Confirmed Oxygen 2 l NS AD 10/22/15 04/11/17 Aspirin [Lo-Dose Aspirin EC] 81 mg PO DAILY 01/09/17 04/11/17 Furosemide [Lasix] 20 mg PO DAILY 01/09/17 04/11/17 HydrOXYzine 25 mg PO TID 01/09/17 04/11/17 Inulin/Chromium Picolinate [Fiber 1 each PO DAILY 01/09/17 04/11/17 Gummies] Lactobacillus Acidophilus 1 mg PO DAILY 01/09/17 04/11/17 [Acidophilus Probiotic] Levothyroxine [Synthroid] 50 mcg PO 0630 01/09/17 04/11/17 Metoprolol Tartrate [Lopressor] 25 mg PO BID 01/09/17 04/11/17 Multivitamin [Multi-Day Vitamins] 1 each PO DAILY 01/09/17 04/11/17 Ubidecarenone [Co Q-10] 200 mg PO DAILY 01/09/17 04/11/17 metOLazone [Zaroxolyn] 5 mg PO DAILY 01/09/17 04/11/17 Lifitegrast [Xiidra] 1 drop BOTH EYES BID 04/02/17 04/11/17 Fluticasone/Vilanterol [Breo 1 each IH DAILY 04/11/17 04/11/17 Ellipta 200-25 Mcg INH] Lactose-Reduced Food [Ensure 1 bottle PO TIDWM 04/11/17 04/11/17 Liquid] Mirtazapine 7.5 mg PO HS 04/11/17 04/11/17 Nystatin [Nystatin Suspension] 500,000 unit PO QID 04/11/17 04/11/17 Spironolactone [Aldactone] 50 mg PO DAILY 04/11/17 04/11/17 Previous Rx's Medication Instructions Recorded Amoxicillin/Clavulanate [Augmentin] 500 mg PO BIDWM #4 tablet 04/05/17 HYDROcodone/Acet 5/325 mg [[place] 1 tab PO Q6HR PRN #20 tablet 04/05/17 5-325 mg] Allergies Allergy/AdvReac Type Severity Reaction Status Date / Time iodine AdvReac Mild Drowsy Verified 04/02/17 02:02 quinidine AdvReac Lethargic Verified 04/02/17 02:02 All systems ED: reviewed and negative except as stated. Review of Systems: As Per HPI Constitutional: Reports: weakness. Denies: fever Eyes: Denies: vision change ENT ED: Denies: congestion Cardiovascular: Denies: chest pain Gastrointestinal: Reports: abdominal pain, nausea, vomiting. Denies: hematemesis, melena, hematochezia Abdominal Pain PMH - Past Medical History Medical history: Reports: atrial fibrillation, cancer, COPD, GI bleed, hyperlipidemia, hypertension, renal disease Female Surgical History: Reports: other [employer] history: Reports: other Psychiatric history: Reports: no psych history - Social History Smoking status: Former smoker Alcohol use: Reports: occasionally Drug use: Reports: none Physical Exam Vital Signs Temperature 98.9 F 04/11/17 15:41 Pulse Rate 110 04/11/17 15:41 Respiratory Rate 16 04/11/17 15:41 Blood Pressure 106/90 04/11/17 15:41 O2 Sat by Pulse Oximetry 92 04/11/17 15:41 Temperature 97.7 F 04/12/17 00:13 Pulse Rate 129 04/12/17 00:13 Respiratory Rate 19 04/12/17 00:13 Blood Pressure 86/53 04/12/17 00:13 O2 Sat by Pulse Oximetry 98 04/12/17 00:13 Oxygen Delivery Oxygen Delivery Room Air 89-year-old female who is alert and oriented 3 and in acute distress. Patient is very frail and ill-appearing. Patient is currently tachycardic at 110 beats minute, patient's vital signs otherwise normal. Patient's oral mucosa is very dry. Patient asked for back and vomited during exam. Emesis was nonbloody - General Limitations: no limitations General appearance: alert - Head Head exam: atraumatic, normocephalic, normal inspection - Eye Eye exam: Present: normal appearance, PERRL, EOMI - ENT ENT exam: normal exam, normal oropharynx, mucous membranes dry - Neck Neck exam: Present: normal inspection, full ROM, trachea midline - Chest Chest inspection: Present: normal inspection, symmetric chest wall rise - Respiratory Respiratory exam: Present: normal lung sounds bilaterally - Cardiovascular Cardiovascular exam: Present: normal rhythm, tachycardia - Abdominal Exam Abdominal exam: Present: soft, tenderness Abdominal tenderness: Present: RLQ, LLQ - Extremities Exam Extremities exam: Present: normal inspection, full ROM, normal capillary refill. Absent: tenderness, pedal edema - Back Exam Back exam: Present: normal inspection, full ROM. Absent: tenderness, CVA tenderness (R), CVA tenderness (L) - Neurological Exam Neurological exam: Present: alert, oriented X3 - Skin Skin exam: Present: warm, dry, intact, normal color. Absent: diaphoresis, erythema, mottled Course - Consultations Consultation #1: lab called for critical high WBC 45.5 Time: 16:16 Consultation #2: Dr. Fernandez of radiology called to let us know the patient's chest x-ray shows free air Time: 16:57 Vital Signs Temperature 98.9 F 04/11/17 15:41 Pulse Rate 110 04/11/17 15:41 Respiratory Rate 16 04/11/17 15:41 Blood Pressure 106/90 04/11/17 15:41 O2 Sat by Pulse Oximetry 92 04/11/17 15:41 Temperature 95.9 F L 04/12/17 07:23 Pulse Rate 120 04/12/17 11:00 Respiratory Rate 16 04/12/17 15:09 Blood Pressure 78/59 04/12/17 11:14 O2 Sat by Pulse Oximetry 100 04/12/17 15:09 Oxygen Delivery Oxygen Delivery Room Air Abdominal Pain - MDM Narrative Medical decision making narrative: Patient's concerning for possible intestinal perforation, small bowel obstruction, ischemic colitis, infectious colitis. Chest x-ray showed free air underneath the right hemidiaphragm. CT scan abdomen and pelvis as a radio been ordered and currently awaiting results. Patient's labs show a highly elevated WBC 45.5 was called in by the lab. Patient has an elevated troponin as well. Sepsis workup was initiated upon arrival. Patient's currently suspected of having perforated diverticulitis and started on Zosyn. Awaiting CT results to contact general surgery. In the meantime patient has been receiving IV fluid hydration, Zofran for nausea control, fentanyl IV for pain control. Treatments have been improving patient's condition. Patient is a lot more comfortable. Patient's vital signs are tolerating treatment. CT: Persistent findings concerning for sigmoid diverticulitis, similar to relatively recent exam 04/02/2017. However, there is significantly worsened intraperitoneal free air as compared to prior exam. There is also a mild degree of ascites, worsened from prior exam without focal fluid collection to suggest abscess formation. No evidence for obstruction. Dr. Augusitne of general Surgery came and saw the patient at bedside. After long discussion with the patient and her son family was not able to come to a conclusion on whether patient should go to surgery at this time. He currently recommends admission to medicine and will have reevaluation concerning family patient's wishes for proceeding with surgery or strictly medical management. Patient was accepted to medicine at [address] Cason. - Medical Records Medical records reviewed: Yes I reviewed the patient's medical records. CT scan dated 04/02/2017 CT scan shows severe descending colon and sigmoid diverticulosis with superimposed severe colitis and microperforation with small amount of free fluid no abscess formation - Lab Data Lab results reviewed: Yes I reviewed the patient's lab results. Lab results narrative: Short CBC 04/11/17 Range/Units 15:57 WBC 45.5 H* D (4.3-11.1) K/mcL Hgb 11.0 L (11.5-15.4) g/dL Hct 34.3 L (35.3-44.9) % Plt Count 387 (140-400) K/mcL Neutrophils # 40.0 H (1.6-8.9) K/mcL BMP 04/11/17 Range/Units 15:57 Sodium 128 L (136-145) mEq/L Potassium 5.0 (3.5-5.1) mEq/L Chloride 92 L (98-107) mEq/L Carbon Dioxide 21 L (23-29) mEq/L BUN 56 H (8-23) mg/dL Creatinine 1.77 H (0.60-1.20) mg/dL Glucose 83 (70-105) mg/dL Calcium 9.1 (8.6-10.3) mg/dL Cardiac Enzymes 04/11/17 Range/Units 15:57 Troponin I 0.06 H* (< 0.04) ng/mL Liver Function 04/11/17 Range/Units 15:57 Total Bilirubin 2.7 H (0.3-1.0) mg/dL Direct Bilirubin 1.3 H (0.0-0.2) mg/dL AST 39 (13-39) Units/L ALT 15 (7-52) Units/L Alkaline Phosphatase 212 H (34-104) Units/L Albumin 3.2 L (3.5-5.7) g/dL Urine 04/11/17 Range/Units 19:40 Urine Color Dark Yellow (Yellow) Urine Clarity Clear (Clear) Urine pH 5.5 (5.0-8.0) pH Units Ur Specific [place] 1.022 (1.010-1.025) Urine Protein Negative (Neg-Trace) mg/dL Urine Glucose (UA) Normal (Normal) mg/dL Result diagrams: 04/12/17 04:06 04/12/17 04:06 Lab Results 04/11/17 04/11/17 04/11/17 Range/Units 15:57 15:57 15:57 WBC 45.5 H* D (4.3-11.1) K/mcL RBC 4.18 (3.82-4.97) M/mcL Hgb 11.0 L (11.5-15.4) g/dL Hct 34.3 L (35.3-44.9) % MCV 82.1 L (83.0-100.0) fL MCH 26.3 L (28.0-33.3) pg MCHC 32.1 (31.6-35.5) g/dL RDW 17.7 H (11.5-14.5) % Plt Count 387 (140-400) K/mcL MPV 9.7 (9.4-12.4) fL Seg Neutrophils % 80.0 % Band Neutrophils % 8.0 H (0-4) % Lymphocytes % 2.0 % Monocytes % 10.0 % Neutrophils # 40.0 H (1.6-8.9) K/mcL Lymphocytes # 0.9 (0.6-4.6) K/mcL Monocytes # 4.6 H (0.0-1.3) K/mcL Platelet Estimate Normal (Normal) Anisocytosis 1+ A (Not Present) PT (9.4-12.1) Seconds INR Sodium 128 L (136-145) mEq/L Potassium 5.0 (3.5-5.1) mEq/L Chloride 92 L (98-107) mEq/L Carbon Dioxide 21 L (23-29) mEq/L BUN 56 H (8-23) mg/dL Creatinine 1.77 H (0.60-1.20) mg/dL Est GFR ( Amer) 33 L (> 60) Est GFR (Non-Af Amer) 27 L (> 60) BUN/Creatinine Ratio 32 H (6-26) Glucose 83 (70-105) mg/dL Calculated Osmolality 281 (280-300) Lactic Acid (0.5-2.2) mmol/L Calcium 9.1 (8.6-10.3) mg/dL Total Bilirubin 2.7 H (0.3-1.0) mg/dL Direct Bilirubin 1.3 H (0.0-0.2) mg/dL Indirect Bilirubin 1.4 H (0.0-1.2) mg/dL AST 39 (13-39) Units/L ALT 15 (7-52) Units/L Alkaline Phosphatase 212 H (34-104) Units/L Troponin I 0.06 H* (< 0.04) ng/mL Serum Total Protein 5.7 L (6.4-8.9) g/dL Albumin 3.2 L (3.5-5.7) g/dL Globulin 2.5 (2.4-3.5) g/dL Albumin/Globulin Ratio 1.3 (1.1-2.2) Lipase 69 (11-82) Units/L 04/11/17 04/11/17 Range/Units 15:57 16:55 WBC (4.3-11.1) K/mcL RBC (3.82-4.97) M/mcL Hgb (11.5-15.4) g/dL Hct (35.3-44.9) % MCV (83.0-100.0) fL MCH (28.0-33.3) pg MCHC (31.6-35.5) g/dL RDW (11.5-14.5) % Plt Count (140-400) K/mcL MPV (9.4-12.4) fL Seg Neutrophils % % Band Neutrophils % (0-4) % Lymphocytes % % Monocytes % % Neutrophils # (1.6-8.9) K/mcL Lymphocytes # (0.6-4.6) K/mcL Monocytes # (0.0-1.3) K/mcL Platelet Estimate (Normal) Anisocytosis (Not Present) PT 19.0 H (9.4-12.1) Seconds INR 1.7 Sodium (136-145) mEq/L Potassium (3.5-5.1) mEq/L Chloride (98-107) mEq/L Carbon Dioxide (23-29) mEq/L BUN (8-23) mg/dL Creatinine (0.60-1.20) mg/dL Est GFR ( Amer) (> 60) Est GFR (Non-Af Amer) (> 60) BUN/Creatinine Ratio (6-26) Glucose (70-105) mg/dL Calculated Osmolality (280-300) Lactic Acid 1.9 (0.5-2.2) mmol/L Calcium (8.6-10.3) mg/dL Total Bilirubin (0.3-1.0) mg/dL Direct Bilirubin (0.0-0.2) mg/dL Indirect Bilirubin (0.0-1.2) mg/dL AST (13-39) Units/L ALT (7-52) Units/L Alkaline Phosphatase (34-104) Units/L Troponin I (< 0.04) ng/mL Serum Total Protein (6.4-8.9) g/dL Albumin (3.5-5.7) g/dL Globulin (2.4-3.5) g/dL Albumin/Globulin Ratio (1.1-2.2) Lipase (11-82) Units/L - Radiology Data Radiology results reviewed: Yes I reviewed the patient's radiology results. Chest X-Ray 04/11/17 15:45 IMPRESSION: Lucency beneath the right hemidiaphragm worrisome for free intraperitoneal air. Findings were called to the ordering service at 4:52 pm on 04/11/2017. Findings were discussed with Ras Webster at 4:55 pm on 04/11/2017. D/ / Clementine Bowers Cha, MD / Clementine Bowers Cha, MD Interpreting Provider: Clementine Bowers Cha, MD Abdomen/Pelvis CT 04/11/17 15:47 IMPRESSION: Persistent findings concerning for sigmoid diverticulitis, similar to relatively recent exam 04/02/2017. However, there is significantly worsened intraperitoneal free air as compared to prior exam. There is also a mild degree of ascites, worsened from prior exam without focal fluid collection to suggest abscess formation. No evidence for obstruction. New small right pleural effusion. New mild degree of nonspecific diffuse subcutaneous edema. Stable cardiomegaly. Critical results were called by Dr. Liam Beavers MD to Ras Webster on 04/11/2017 at 17:10. D/ / 04/11/2017 17:18:48 Liam Beavers MD / roddy Interpreting Provider: Liam Beavers MD - EKG Data EKG attestation: Yes I reviewed and interpreted this EKG. EKG results narrative: EKG taken 04/03/2017 at 1647 hrs. shows A. fib with RVR at a rate of [address] elevations in any leads, EKG shows mild ST depression in V6 with inversion of T waves, T wave inversion can be seen on previous EKG for comparison dated January 2017 which shows A. fib at a rate of 85 beats a minute. Critical Care Time Critical Care Time: Yes Total Critical Care Time: 35 Attestation: The high probability of a clinically significant, sudden or life threatening deterioration of the [GI/CV] system(s) required my full and direct attention, intervention and personal management. The aggregate critical care time was [35] minutes. This time is in addition to time spent performing reported procedures but includes the following: [x] Data Review and interpretation [x] Patient assessment and monitoring of vital signs [x] Documentation [x] Medication orders and management Attestation Statement - Attestation Attestation: I examined this patient and my medical decision-making was reviewed with the Resident Physician, Dr. Webster. I agree with the documented findings, disposition and treatment plan as described except to the extent set forth below. Pt is an 89 yo wf, brought to the ER by her son for worsening abd pain, N/V, and inability to tolerate PO. Pt arrives tachycardic and apppears clinically dehydrated with c/o moderate abd pain. Pt recently hospitalized within past week for diverticulitis and sepsis. Pt feels her sxs are worsening. I agree with pt's PE findings, except on my assessment, pt with gen abd TTP, with guarding, concerning for acute abd. With recent hx, worried about possible performated diverticulum. Pt started on IVF resuscitation, and sepsis protocol initiated. IVF boluses ordered, and labs, CT imaging ordered including CXR. CXR shows free air, which was suspected on clinical exam, sent for CT. Empiric IV zosyn started in eD, as pt was switched from cipro/flagyl to zosyn during her prior hospital course. Appeared to be more effective. Pt with worsening free air, pneumoperitoneum, and sigmoid diverticulitis without obvious abscess. Pt with continued pain meds/antiemetics IV. Labs show significant leukocytosis, and lactic acidosis. Notified gen surgery, consulted form ED and evaluated pt in ED. Pt expressed to me during my discussion of her test results and likely need for surgery, that she did not want to have surgery. Dr. Augustine, Gen Surg, spoke with pt at bedside and unclear at this point whether pt will undergo surgery, at this time is declining. Will admit to hospitalist and gen surg will continue to follow as communication consultant. IVF continued, IV antibx infusing, d/w hospitalist.
[2017-04-11 16:27] LABS: Lymphocytes # 0.9 K/mcL (0.6-4.6); Monocytes # 4.6 K/mcL (0.0-1.3); Platelet Estimate Normal (Normal)
[2017-04-11 16:28] LABS: Anisocytosis 1+ (Not Present)
[2017-04-11] MEDS ORDERED: 0.9 % Sodium Chloride 500 ML IVC ONE (16:43)
[2017-04-11] MEDS ORDERED: Ondansetron 4 MG/2 ML VIAL IVP ONE (16:46)
[2017-04-11] MEDS ORDERED: Piperacillin/Tazobactam 3.375 GM in D5% in Water (Mini-Bag+) 100 ML IVPB ONE (17:08)
[2017-04-11 17:27] LABS: INR 1.7
[2017-04-11] MEDS ORDERED: Piperacillin/Tazobactam 3.375 GM in Water for inj. (sterile) 20 ML 20 ML IVP ONE (18:00)
[2017-04-11 19:47] LABS: Bilirubin,Urine Negative (Negative); Blood,Urine Negative (Negative); Clarity,Urine Clear (Clear); Color,Urine Dark Yellow (Yellow); Glucose,Urine (UA) Normal (Normal); Ketones,Urine Negative (Negative); Leukocyte Esterase,Urine Negative (Negative); Nitrite,Urine Negative (Negative); PH,Urine 5.5 pH Units (5.0-8.0); Protein,Urine Negative (Neg-Trace); Specific Gravity,Urine 1.022 (1.010-1.025); Urobilinogen,Urine Normal (Normal)
--- NOTE | 2017-04-11 20:33 | General Surgery Consult Note ---
Date of Encounter: 04/11/17 Time of Encounter: 20:26 Assessment and Plan (1) Sigmoid diverticulitis Current Visit: No Status: Acute 89F with multiple comorbidities with pneumoperitoneum 2/2 perforated diverticulitis. No evidence of any abscess on CT that I am able to appreciate ( all images were reviewed by me personally and factored into my judgement). I discussed with the patient concerning her options, non operative management, as before, or surgery. I told her that with her symptoms returning so soon after hospitalization, it is likely that non operative management will be unsuccessful , possibly while still in patient and very likely if she is discharged from the hospital. If she did nothing more aggressive for a disease that has failed non operative management, there is a good chance she would meet her demise. Furthermore, if surgery was decided, due to her comorbidities, there is a chance she will not survive the procedure, not the physiological insult from both surgery and her disease. The patient did elect for conservative measures with plans to discuss with her family her wishes. Surgery will continue to follow History of Present Illness Consult date: 04/11/17 History of present illness: 89F with PMH significant for CAD, CHF, atrial fibrillation, pulm hypertension, CVA, COPD, [place], renal failure whod presents with a repeat episode of LLQ abdominal pain. She was admitted and treated approximately 10 days prior with antibiotics, bowel rest and pain control. Upon discharge, per the patient, her pain wasn't completely resolved. She continued to experience LLQ abdominal pain , the most recent occuring today. No associated fevers, chills, but she does report poor PO intake due to worsening pain. The pain, per the patient, is severe. A CT scan was obtained demosntrated significant free air. her WBC is elevated at 45K. Surgery was consulted for management recommendations. Past Med Surg Social Fam HX - Past Medical History Medical history: atrial fibrillation, cancer, COPD, GI bleed, hyperlipidemia, hypertension, renal disease Psychiatric history: no psych history - Past Surgical History Surgical History: cholecystectomy - Social History Smoking Status: Former smoker Smokeless Tobacco Status: No Alcohol use: occasionally Drug use: none - Family History Mother Hx Family Cardiac Disorders: Yes Medications and Allergies Oxygen 2 l NS AD 10/22/15 [History] Aspirin [Lo-Dose Aspirin EC] 81 mg PO DAILY 01/09/17 [History] Furosemide [Lasix] 20 mg PO DAILY 01/09/17 [History] HydrOXYzine 25 mg PO TID 01/09/17 [History] Inulin/Chromium Picolinate [Fiber Gummies] 1 each PO DAILY 01/09/17 [History] Lactobacillus Acidophilus [Acidophilus Probiotic] 1 mg PO DAILY 01/09/17 [ History] Levothyroxine [Synthroid] 50 mcg PO 0630 01/09/17 [History] Metoprolol Tartrate [Lopressor] 25 mg PO BID 01/09/17 [History] Multivitamin [Multi-Day Vitamins] 1 each PO DAILY 01/09/17 [History] Ubidecarenone [Co Q-10] 200 mg PO DAILY 01/09/17 [History] metOLazone [Zaroxolyn] 5 mg PO DAILY 01/09/17 [History] Lifitegrast [Xiidra] 1 drop BOTH EYES BID 04/02/17 [History] Amoxicillin/Clavulanate [Augmentin] 500 mg PO BIDWM #4 tablet 04/05/17 [Rx] HYDROcodone/Acet 5/325 mg [[place] 5-325 mg] 1 tab PO Q6HR PRN #20 tablet [Rx] Fluticasone/Vilanterol [Breo Ellipta 200-25 Mcg INH] 1 each IH DAILY 04/11/17 [ History] Lactose-Reduced Food [Ensure Liquid] 1 bottle PO TIDWM 04/11/17 [History] Mirtazapine 7.5 mg PO HS 04/11/17 [History] Nystatin [Nystatin Suspension] 500,000 unit PO QID 04/11/17 [History] Spironolactone [Aldactone] 50 mg PO DAILY 04/11/17 [History] 3 Allergy/AdvReac Type Severity Reaction Status Date / Time iodine AdvReac Mild Drowsy Verified 04/02/17 02:02 quinidine AdvReac Lethargic Verified 04/02/17 02:02 Review of Systems All systems PM: A 10-system review of systems was performed and is negative for pertinent findings except as documented above in the HPI. General Surgery Exam Initial Vital Signs Temp Pulse Resp BP Pulse Ox 98.9 F 110 16 106/90 92 04/11/17 15:41 04/11/17 15:41 04/11/17 15:41 04/11/17 15:41 04/11/17 15:41 - General physical appearance well developed, no distress, moderate pain - Eyes normal ocular movement - Neck no lymphadectomy - Respiratory normal expansion, normal respiratory effort - Cardiovascular Cardiovascular exam: Present: RRR - Abdomen Abdomen general surgery: Present: soft, distended, tender Abdominal Tenderness: Present: LLQ Hernia: Present: none - Integumentary Integumentary general surgery: Present: warm and dry - Neurologic Present: CN 2-12 grossly intact - Psychiatric Psychiatric general surgery: Present: A&Ox3 Exam Initial Vital Signs Temp Pulse Resp BP Pulse Ox 98.9 F 110 16 106/90 92 04/11/17 15:41 04/11/17 15:41 04/11/17 15:41 04/11/17 15:41 04/11/17 15:41 Results - Labs 04/11/17 15:57 04/11/17 15:57 Abnormal lab results WBC 45.5 K/mcL (4.3-11.1) H* D 04/11/17 15:57 Hgb 11.0 g/dL (11.5-15.4) L 04/11/17 15:57 Hct 34.3 % (35.3-44.9) L 04/11/17 15:57 MCV 82.1 fL (83.0-100.0) L 04/11/17 15:57 MCH 26.3 pg (28.0-33.3) L 04/11/17 15:57 RDW 17.7 % (11.5-14.5) H 04/11/17 15:57 Band Neutrophils % 8.0 % (0-4) H 04/11/17 15:57 Neutrophils # 40.0 K/mcL (1.6-8.9) H 04/11/17 15:57 Monocytes # 4.6 K/mcL (0.0-1.3) H 04/11/17 15:57 Anisocytosis 1+ (Not Present) A 04/11/17 15:57 PT 19.0 Seconds (9.4-12.1) H 04/11/17 15:57 Sodium 128 mEq/L (136-145) L 04/11/17 15:57 Chloride 92 mEq/L (98-107) L 04/11/17 15:57 Carbon Dioxide 21 mEq/L (23-29) L 04/11/17 15:57 BUN 56 mg/dL (8-23) H 04/11/17 15:57 Creatinine 1.77 mg/dL (0.60-1.20) H 04/11/17 15:57 Est GFR ( Amer) 33 (> 60) L 04/11/17 15:57 Est GFR (Non-Af Amer) 27 (> 60) L 04/11/17 15:57 BUN/Creatinine Ratio 32 (6-26) H 04/11/17 15:57 Total Bilirubin 2.7 mg/dL (0.3-1.0) H 04/11/17 15:57 Direct Bilirubin 1.3 mg/dL (0.0-0.2) H 04/11/17 15:57 Indirect Bilirubin 1.4 mg/dL (0.0-1.2) H 04/11/17 15:57 Alkaline Phosphatase 212 Units/L (34-104) H 04/11/17 15:57 Troponin I 0.06 ng/mL (< 0.04) H* 04/11/17 15:57 Serum Total Protein 5.7 g/dL (6.4-8.9) L 04/11/17 15:57 Albumin 3.2 g/dL (3.5-5.7) L 04/11/17 15:57 All other labs normal. - Imaging CT scan - abdomen: report reviewed, image reviewed CT scan - pelvis: report reviewed, image reviewed Consult Discharge Plan - Plan Referrals: Marti Waite MD [Primary Care Provider] -
[2017-04-11] MEDS ORDERED: Naloxone 0.4 MG/ML INJ IVP PRN (22:10)
--- NOTE | 2017-04-11 22:22 | Internal Med History&Physical ---
Date of Encounter: 04/11/17 Time of Encounter: 22:20 Assessment and Plan (1) Sepsis Current visit: No Status: Resolved 2/2 to perforated viscus IV cipro/flagyl NPO, IVF IV pain control Need source control with perforated sigmoid diverticulitis D/w surgery Dr Augustine and patient/family. Did not want surgery for now but would consider - they will discuss more. Will need surgical re-eval in the a.m Prognosis guarded Qualifiers: Sepsis type: sepsis due to unspecified organism Qualified Code(s): A41.9 - Sepsis, unspecified organism (2) Sigmoid diverticulitis Current visit: No Status: Acute now perforated management per surgery above (3) Atrial fibrillation with RVR Current visit: Yes Status: Acute check Mg in a.m treat sepsis above as best as possible but patient declined surgery in the ED. Will need close eval IV metoprolol push for now If BP low or if not controlled may need amiodarone IV or dilt gtt respectively close monitoring High risk for morbidity and mortality (4) BLAKE (acute kidney injury) Current visit: No Status: Acute IVF Internal Medicine - H&P: HPI Chief complaint: Abdo pain History of present illness: Ms. Gomez is a 89 year old female who presents with perforated viscus from progressive sigmoid diverticulitis. She was admitted approx 1 week ago on Mar for acute diverticulitis and improved on PO antibiotics. She was later sent to SNF where she had been for 4- 5 days. In the last day or so, she developed progressive, worsening LLQ pain that radiate to the RLQ, rate 8/10. Associated with anorexia. No improving factors. Worse with movement She is DNRCCA/DNI per patient and family EKG A. fib with RVR at a rate of 112 CT/CT abd pelvis wo no iv no oral IMPRESSION: Persistent findings concerning for sigmoid diverticulitis, similar to relatively recent exam 04/02/2017. However, there is significantly worsened intraperitoneal free air as compared to prior exam. There is also a mild degree of ascites, worsened from prior exam without focal fluid collection to suggest abscess formation. No evidence for obstruction. New small right pleural effusion. New mild degree of nonspecific diffuse subcutaneous edema. Stable cardiomegaly. XR/XR chest 1V portable IMPRESSION: Lucency beneath the right hemidiaphragm worrisome for free intraperitoneal air. Past Med Surg Social Fam HX - Past Medical History Medical history: atrial fibrillation, cancer, COPD, GI bleed, hyperlipidemia, hypertension, renal disease Psychiatric history: no psych history - Past Surgical History Surgical History: cholecystectomy - Social History Smoking Status: Former smoker Smokeless Tobacco Status: No Alcohol use: occasionally Drug use: none - Family History Mother Hx Family Cardiac Disorders: Yes Internal Medicine - H&P: Meds Oxygen 2 l NS AD 10/22/15 [History] Aspirin [Lo-Dose Aspirin EC] 81 mg PO DAILY 01/09/17 [History] Furosemide [Lasix] 20 mg PO DAILY 01/09/17 [History] HydrOXYzine 25 mg PO TID 01/09/17 [History] Inulin/Chromium Picolinate [Fiber Gummies] 1 each PO DAILY 01/09/17 [History] Lactobacillus Acidophilus [Acidophilus Probiotic] 1 mg PO DAILY 01/09/17 [ History] Levothyroxine [Synthroid] 50 mcg PO 0630 01/09/17 [History] Metoprolol Tartrate [Lopressor] 25 mg PO BID 01/09/17 [History] Multivitamin [Multi-Day Vitamins] 1 each PO DAILY 01/09/17 [History] Ubidecarenone [Co Q-10] 200 mg PO DAILY 01/09/17 [History] metOLazone [Zaroxolyn] 5 mg PO DAILY 01/09/17 [History] Lifitegrast [Xiidra] 1 drop BOTH EYES BID 04/02/17 [History] Amoxicillin/Clavulanate [Augmentin] 500 mg PO BIDWM #4 tablet 04/05/17 [Rx] HYDROcodone/Acet 5/325 mg [[place] 5-325 mg] 1 tab PO Q6HR PRN #20 tablet [Rx] Fluticasone/Vilanterol [Breo Ellipta 200-25 Mcg INH] 1 each IH DAILY 04/11/17 [ History] Lactose-Reduced Food [Ensure Liquid] 1 bottle PO TIDWM 04/11/17 [History] Mirtazapine 7.5 mg PO HS 04/11/17 [History] Nystatin [Nystatin Suspension] 500,000 unit PO QID 04/11/17 [History] Spironolactone [Aldactone] 50 mg PO DAILY 04/11/17 [History] 3 Allergy/AdvReac Type Severity Reaction Status Date / Time iodine AdvReac Mild Drowsy Verified 04/02/17 02:02 quinidine AdvReac Lethargic Verified 04/02/17 02:02 All Systems PM: A 10-system review of systems was performed and is negative for pertinent findings except as documented above in the HPI. Review of systems: ROS 14 point review of systems reviewed as best as possible given presentation. Pertinent positive or negative as per HPI or otherwise reviewed as negative - Constitutional Vitals: Temp Pulse Resp BP Pulse Ox 97.8 F 114 18 101/52 95 04/11/17 20:24 04/11/17 20:50 04/11/17 20:24 04/11/17 20:24 04/11/17 20:24 Exam: General - AAO x 3 Psych - Appropriate affect/speech. No agitation Eyes - BRENDA. Eye lids intact. No scleral icterus Heart - Irregularly irregular. S1 and S2 present. No added HS/murmurs appreciated. No elevated JVD appreciated. Lung - Adequate air entry b/l, No crackles/wheezes appreciated GI - abdomen rigid with guarding. No hepatosplenomegaly/ascites. BS+ - No CVA/suprapubic tenderness or palpable bladder distension Skin - Intact. No rash/petechiae/ecchymosis. Warm extremities MSK - Joints with normal ROM. No joint swellings Internal Med - H&P Results - Labs CBC & Chem 7: 04/11/17 15:57 04/11/17 15:57 Labs: Urine 04/11/17 Range/Units 19:40 Urine Color Dark Yellow (Yellow) Urine Clarity Clear (Clear) Urine pH 5.5 (5.0-8.0) pH Units Ur Specific [place] 1.022 (1.010-1.025) Urine Protein Negative (Neg-Trace) mg/dL Urine Glucose (UA) Normal (Normal) mg/dL
[2017-04-11] MEDS ORDERED: 0.9 % Sodium Chloride 500 ML IV.SOLN IVC ONE (22:33)
[2017-04-11] MEDS ORDERED: 0.9 % Sodium Chloride 1,000 ML IV ONE (22:45)
[2017-04-11] MEDS ORDERED: 0.9 % Sodium Chloride 1,000 ML ONE (23:18)
[2017-04-11] MEDS: *HR* Morphine 2 MG/ML SYRINGE IVP PRN (23:22)
[2017-04-11] MEDS: Ringers Solution, Lactated 1,000 ML IVC SCH (23:23)
[2017-04-11] MEDS: metroNIDAZOLE 500 MG TABLET PO SCH (23:24)
[2017-04-11] MEDS: *HR* Metoprolol 5 MG/5 ML VIAL IVP SCH (23:24)
[2017-04-12] MEDS: *HR* Metoprolol 5 MG/5 ML VIAL IVP SCH ×2 (00:02→04:51)
[2017-04-12] MEDS: *HR* Morphine 2 MG/ML SYRINGE IVP PRN (02:56)
[2017-04-12] MEDS: 0.9 % Sodium Chloride 1,000 ML IVC SCH ×3 (03:41→07:42)
[2017-04-12] MEDS: Ipratropium/Albuterol Neb 3 ML IH SCH ×6 (04:17→23:50)
[2017-04-12 04:25] LABS: Red Cell Distribution Width 17.8 % (11.5-14.5)
[2017-04-12 04:27] LABS: Hemoglobin 9.2 g/dL (11.5-15.4); Mean Corpuscular HGB Conc 31.7 g/dL (31.6-35.5); Mean Corpuscular Hemoglobin 26.1 pg (28.0-33.3); Mean Corpuscular Volume 82.2 fL (83.0-100.0); Mean Platelet Volume 9.6 fL (9.4-12.4); Platelet Count 313 K/mcL (140-400); Red Blood Count 3.53 M/mcL (3.82-4.97)
[2017-04-12 04:33] LABS: Calcium 7.8 mg/dL (8.6-10.3); Magnesium 1.7 mg/dL (1.6-2.6); Potassium 5.2 mEq/L (3.5-5.1)
[2017-04-12 05:56] LABS: Lymphocytes # 0.7 K/mcL (0.6-4.6); Monocytes # 2.7 K/mcL (0.0-1.3); Neutrophils # 30.9 K/mcL (1.6-8.9); Platelet Estimate Normal (Normal)
[2017-04-12 05:57] LABS: Acanthocytes 2+ (Not Present); Anisocytosis 1+ (Not Present); Microcytosis Present (Not Present)
[2017-04-12] MEDS ORDERED: Levothyroxine Sodium 100 MCG VIAL IVP SCH (06:30)
[2017-04-12] MEDS ORDERED: *HR* Dextrose 50 % in Water (Syg) 50 ML SYRINGE ONE (06:30)
[2017-04-12] MEDS ORDERED: *HR* Dextrose 50 % in Water (Syg) 50 ML SYRINGE IVP ONE (07:05)
[2017-04-12] MEDS: Ringers Solution, Lactated 1,000 ML IVC SCH (07:43)
[2017-04-12] MEDS ORDERED: *HR* HYDROcodone/Acet 5/325 mg TABLET PO PRN ×3 (08:21→11:07)
--- NOTE | 2017-04-12 08:22 | Pulmonology Consult Note ---
Date of Encounter: 04/12/17 Time of Encounter: 08:19 Assessment and Plan (1) Goals of care, counseling/discussion Current Visit: Yes Status: Acute This is an 89-year-old woman with multiple medical comorbidities including long- standing heart failure complicated by valvular heart disease COPD chronic respiratory failure she presented with abdominal pain and sepsis secondary to perforated viscus from diverticulitis. This is a second occurrence of this and the treatment would involve surgery as she has already failed conservative management. Unfortunately she is exhibiting signs of severe sepsis with progression to shock and multiorgan system failure and further review of her labs and chart reveal acute on chronic kidney injury hyperkalemia atrial fibrillation with rapid ventricular response suspected cardiogenic/ noncardiogenic pulmonary edema with worsening respiratory failure and increasing lactic acidosis) and without definitive treatment she would not be expected to recover. Unfortunately for her to undergo surgery would also pose a very high mortality giving her age chronic medical comorbidities and severity of underlying illness. I spoke to the patient at bedside upon arrival to ICU both by myself with the bedside nurse and in the presence of the general surgeon Dr. Osorio. She unequivocally explained to both of us that she feels like her body is tired and she does not one to go forward with surgery and that she does not want any further aggressive treatment for this understanding that the outcome would be her demise. This is also reiterated in the presence of her daughter (and next of kin). I offered my emotional support and was available to answer any questions explaining any misunderstandings that the patient and her family may have they both expressed understanding and agreement with plan. I have change CODE STATUS to reflect this [facility] Palliative care will be consulted for hospice arrangements (2) Septic shock Current Visit: Yes Status: Acute (3) MODS (multiple organ dysfunction syndrome) Current Visit: Yes Status: Acute (4) Perforated abdominal viscus Current Visit: Yes Status: Acute (5) Acute and chronic respiratory failure Current Visit: No Status: Acute Qualifiers: Respiratory failure complication: unspecified whether with hypoxia or hypercapnia Qualified Code(s): J96.20 - Acute and chronic respiratory failure , unspecified whether with hypoxia or hypercapnia (6) BLAKE (acute kidney injury) Current Visit: Yes Status: Acute (7) Atrial fibrillation with RVR Current Visit: Yes Status: Acute (8) Hyperkalemia Current Visit: Yes Status: Acute History of Present Illness Consult date: 04/12/17 Requesting physician: Albino Ríos Reason for consult: other (Shock) Chief complaint: Abdominal Pain History of present illness: This is an 89-year-old woman with past medical history of heart failure with reduced ejection fraction mitral valve disease COPD and recent history of diverticulitis with rupture that was managed conservatively at patient's request because she did not want to undergo surgery for repair. Unfortunately over the last couple days she has had increasing abdominal pain presented with evidence of severe sepsis white count was 45 CT of the abdomen showed free air with suggestion of ruptured viscus general surgery consultation was made with recommendations to proceed with surgery as a life-saving option patient has refused surgery overnight and this morning she has had worsening clinical course including atrial fibrillation with RVR hypotension and lactic acidosis and worsening renal dysfunction she was transferred to the ICU for further management. She is a remote history of smoking but advanced COPD. No significant environmental/industrial exposures. She is complaining of abdominal pain and dry mouth and is desperate for "something wet" to cool her mouth. She is also mildly dyspneic. Early this morning patient was transferred from stepdown unit ICU for hypotension despite receiving 3 L crystalloid challenge. Past Med Surg Social Fam HX - Past Medical History Medical history: atrial fibrillation, cancer, COPD, GI bleed, hyperlipidemia, hypertension, renal disease Psychiatric history: no psych history - Past Surgical History Surgical History: cholecystectomy - Social History Smoking Status: Former smoker Smokeless Tobacco Status: No Alcohol use: occasionally Drug use: none - Family History Mother Hx Family Cardiac Disorders: Yes Medications and Allergies Oxygen 2 l NS AD 10/22/15 [History] Aspirin [Lo-Dose Aspirin EC] 81 mg PO DAILY 01/09/17 [History] Furosemide [Lasix] 20 mg PO DAILY 01/09/17 [History] HydrOXYzine 25 mg PO TID 01/09/17 [History] Inulin/Chromium Picolinate [Fiber Gummies] 1 each PO DAILY 01/09/17 [History] Lactobacillus Acidophilus [Acidophilus Probiotic] 1 mg PO DAILY 01/09/17 [ History] Levothyroxine [Synthroid] 50 mcg PO 0630 01/09/17 [History] Metoprolol Tartrate [Lopressor] 25 mg PO BID 01/09/17 [History] Multivitamin [Multi-Day Vitamins] 1 each PO DAILY 01/09/17 [History] Ubidecarenone [Co Q-10] 200 mg PO DAILY 01/09/17 [History] metOLazone [Zaroxolyn] 5 mg PO DAILY 01/09/17 [History] Lifitegrast [Xiidra] 1 drop BOTH EYES BID 04/02/17 [History] Amoxicillin/Clavulanate [Augmentin] 500 mg PO BIDWM #4 tablet 04/05/17 [Rx] HYDROcodone/Acet 5/325 mg [[place] 5-325 mg] 1 tab PO Q6HR PRN #20 tablet [Rx] Fluticasone/Vilanterol [Breo Ellipta 200-25 Mcg INH] 1 each IH DAILY 04/11/17 [ History] Lactose-Reduced Food [Ensure Liquid] 1 bottle PO TIDWM 04/11/17 [History] Mirtazapine 7.5 mg PO HS 04/11/17 [History] Nystatin [Nystatin Suspension] 500,000 unit PO QID 04/11/17 [History] Spironolactone [Aldactone] 50 mg PO DAILY 04/11/17 [History] 3 Allergy/AdvReac Type Severity Reaction Status Date / Time iodine AdvReac Mild Drowsy Verified 04/02/17 02:02 quinidine AdvReac Lethargic Verified 04/02/17 02:02 All Systems: A 10-system review of systems was performed and is negative for pertinent findings except as documented above in the HPI. Physical Examination Vital Signs: Vital Signs, Last 4 Hours Temp Pulse Resp BP Pulse Ox 04/12/17 07:23 95.9 F L 117 20 97/33 98 04/12/17 06:00 108 75/59 04/12/17 05:00 100 80/54 General appearance: no acute distress Eyes: nonicteric ENT: oropharynx dry Neck: supple Effort: mildly labored Auscultation: bilateral: wheezes, rales Cardiovascular: irregular rhythm Gastrointestinal: tender, guarding (rigid ) Integumentary: other (Scattered areas of ecchymoses) Extremities: no cyanosis, no edema Musculoskeletal: no deformities normal mental status, non-focal exam mood appropriate Results - Laboratory Findings CBC and BMP: 04/12/17 04:06 04/12/17 04:06 PT/INR, D-dimer PT 19.0 Seconds (9.4-12.1) H 04/11/17 15:57 Abnormal lab findings: Abnormal lab results WBC 34.3 K/mcL (4.3-11.1) H* 04/12/17 04:06 RBC 3.53 M/mcL (3.82-4.97) L 04/12/17 04:06 Hgb 9.2 g/dL (11.5-15.4) L D 04/12/17 04:06 Hct 29.0 % (35.3-44.9) L 04/12/17 04:06 MCV 82.2 fL (83.0-100.0) L 04/12/17 04:06 MCH 26.1 pg (28.0-33.3) L 04/12/17 04:06 RDW 17.8 % (11.5-14.5) H 04/12/17 04:06 Band Neutrophils % 10.0 % (0-4) H 04/12/17 04:06 Neutrophils # 30.9 K/mcL (1.6-8.9) H 04/12/17 04:06 Monocytes # 2.7 K/mcL (0.0-1.3) H 04/12/17 04:06 Anisocytosis 1+ (Not Present) A 04/12/17 04:06 Microcytosis Present (Not Present) A 04/12/17 04:06 Acanthocytes (Spur) 2+ (Not Present) A 04/12/17 04:06 PT 19.0 Seconds (9.4-12.1) H 04/11/17 15:57 Sodium 129 mEq/L (136-145) L 04/12/17 04:06 Potassium 5.2 mEq/L (3.5-5.1) H 04/12/17 04:06 Carbon Dioxide 19 mEq/L (23-29) L 04/12/17 04:06 BUN 60 mg/dL (8-23) H 04/12/17 04:06 Creatinine 1.95 mg/dL (0.60-1.20) H 04/12/17 04:06 Est GFR ( Amer) 29 (> 60) L 04/12/17 04:06 Est GFR (Non-Af Amer) 24 (> 60) L 04/12/17 04:06 BUN/Creatinine Ratio 31 (6-26) H 04/12/17 04:06 POC Glucose 93 (58-89) H 04/12/17 00:16 Lactic Acid 2.5 mmol/L (0.5-2.2) H 04/12/17 04:06 Calcium 7.8 mg/dL (8.6-10.3) L 04/12/17 04:06 Total Bilirubin 2.7 mg/dL (0.3-1.0) H 04/11/17 15:57 Direct Bilirubin 1.3 mg/dL (0.0-0.2) H 04/11/17 15:57 Indirect Bilirubin 1.4 mg/dL (0.0-1.2) H 04/11/17 15:57 Alkaline Phosphatase 212 Units/L (34-104) H 04/11/17 15:57 Troponin I 0.06 ng/mL (< 0.04) H* 04/11/17 15:57 Serum Total Protein 5.7 g/dL (6.4-8.9) L 04/11/17 15:57 Albumin 3.2 g/dL (3.5-5.7) L 04/11/17 15:57 - Diagnostic Findings Chest x-ray: report reviewed, image reviewed Additional studies: CT abdomen and pelvis presented reviewed and reviewed report - Clinical Findings Intake & Output: Intake & Output 04/11/17 04/12/17 04/12/17 23:59 07:59 15:59 Intake Total 3150 / 3150 Output Total 250 / 250 Balance -250 / 270 3150 / 3150 Weight 55.3 kg Consult Discharge Plan - Plan Referrals: Marti Waite MD [Primary Care Provider] -
--- NOTE | 2017-04-12 08:37 | General Surgery Progress Note ---
Date of Encounter: 04/12/17 Time of Encounter: 08:35 - Assessment and Plan (1) Sigmoid diverticulitis Current Visit: No Status: Acute 89F with multiple comorbidities with pneumoperitoneum 2/2 perforated diverticulitis. No evidence of any abscess on CT that I am able to appreciate ( all images were reviewed by me personally and factored into my judgement). I discussed with the patient concerning her options, non operative management, as before, or surgery. I told her that with her symptoms returning so soon after hospitalization, it is likely that non operative management will be unsuccessful , possibly while still in patient and very likely if she is discharged from the hospital. If she did nothing more aggressive for a disease that has failed non operative management, there is a good chance she would meet her demise. Furthermore, if surgery was decided, due to her comorbidities, there is a chance she will not survive the procedure, not the physiological insult from both surgery and her disease. Had a second discussion with patient and her daughter. the decision was made not to proceed with surgery; I respected and agreed with their decision. Subjective Patient reports: other (worsening clinical status; approaching MOFS) Objective Vital Signs - Last 8 Hours Temp Pulse Resp BP Pulse Ox 04/12/17 08:00 128 16 82/58 97 04/12/17 07:23 95.9 F L 117 20 97/33 98 04/12/17 06:00 108 75/59 04/12/17 05:00 100 80/54 04/12/17 04:17 18 99 04/12/17 04:00 96 91/64 04/12/17 03:47 97.7 F 112 16 90/51 99 04/12/17 03:00 121 90/51 04/12/17 02:00 116 94/57 04/12/17 01:00 126 95/59 Intake and Output 04/11/17 04/12/17 04/12/17 23:59 07:59 15:59 Intake Total 3150 / 3150 0 / 0 Output Total 250 / 250 Balance -250 / 270 3150 / 3150 0 / 0 Intake: IV Fluids 3150 / 3150 0.9 % Sodium Chloride 1,000 ML 1000 / 1000 @ 4000 mls/hr IV .Q15M ONE Rx#: [id number] 0.9 % Sodium Chloride 1,000 ML 1000 / 1000 @ 2000 mls/hr IVC .Q30M [facility] Rx# :[id number] Lactated Ringers 1,000 ML @ 150 950 / 950 mls/hr IVC .Q6H40M [facility] Rx#: [id number] Cipro Premix 400 MG/200 ML 400 200 / 200 mg In 200 ml @ 200 mls/hr IVPB Q12H [facility] Rx#:[id number] Oral 0 / 0 Output: Catheter 250 / 250 Urethral (Gray) 250 / 250 Other: Weight 55.3 kg Blood Glucose* 125 Patient Weight 04/12/17 23:59 Weight 55.3 kg - General physical appearance moderate distress, moderate pain - Eyes normal ocular movement - ENT normocephalic - Neck Neck exam: no lymphadectomy - Respiratory normal expansion, normal respiratory effort - Cardiovascular Cardiovascular exam: Present: RRR - Abdomen Abdomen: Present: soft, tender Abdominal Tenderness: diffusely - Neurologic CN 2-12 grossly intact - Psychiatric oriented to time, oriented to person, oriented to place - Labs 04/12/17 04:06 04/12/17 04:06 Diabetes panel 04/12/17 Range/Units 04:06 Sodium 129 L (136-145) mEq/L Potassium 5.2 H (3.5-5.1) mEq/L Chloride 99 (98-107) mEq/L Carbon Dioxide 19 L (23-29) mEq/L BUN 60 H (8-23) mg/dL Creatinine 1.95 H (0.60-1.20) mg/dL Glucose 80 (70-105) mg/dL Calcium 7.8 L (8.6-10.3) mg/dL Calcium panel 04/12/17 Range/Units 04:06 Calcium 7.8 L (8.6-10.3) mg/dL Pituitary panel 04/12/17 Range/Units 04:06 Sodium 129 L (136-145) mEq/L Potassium 5.2 H (3.5-5.1) mEq/L Chloride 99 (98-107) mEq/L Carbon Dioxide 19 L (23-29) mEq/L BUN 60 H (8-23) mg/dL Creatinine 1.95 H (0.60-1.20) mg/dL Glucose 80 (70-105) mg/dL Calcium 7.8 L (8.6-10.3) mg/dL Adrenal panel 04/12/17 Range/Units 04:06 Sodium 129 L (136-145) mEq/L Potassium 5.2 H (3.5-5.1) mEq/L Chloride 99 (98-107) mEq/L Carbon Dioxide 19 L (23-29) mEq/L BUN 60 H (8-23) mg/dL Creatinine 1.95 H (0.60-1.20) mg/dL Glucose 80 (70-105) mg/dL Calcium 7.8 L (8.6-10.3) mg/dL Consult Discharge Plan - Plan Referrals: Marti Waite MD [Primary Care Provider] -
[2017-04-12] MEDS: metroNIDAZOLE 500 MG TABLET PO SCH ×3 (08:43→21:19)
[2017-04-12] MEDS ORDERED: Piperacillin/Tazobactam 3.375 GM/200 ML BAG IVPB ONE (08:59)
[2017-04-12] MEDS ORDERED: *HR* Morphine 2 MG/ML SYRINGE IVP PRN ×2 (08:59→11:07)
[2017-04-12] MEDS ORDERED: Naloxone 0.4 MG/ML INJ IVP PRN ×2 (08:59→11:07)
[2017-04-12] MEDS ORDERED: 0.9 % Sodium Chloride 500 ML IV.SOLN IVC ONE (08:59)
[2017-04-12] MEDS ORDERED: metroNIDAZOLE 500 MG TABLET PO SCH (09:00)
--- NOTE | 2017-04-12 09:17 | Electrocardiograph Report ---
[address] [place] [address] Test Date: 2017-04-11 Pat Name: Miguelina Gomez Department: 104 Room: [facility] Gender: Sock Liner: EKP : [id number] Requested By: Christina Shelton Order Number: [id number] Reading MD: Gloria Good Measurements Intervals [place] Rate: 112 P: RI: 0 QRS: -40 QRSD: 127 T: 144 QT: 366 QTc: 433 Interpretive Statements ATRIAL FIBRILLATION WITH RAPID VENTRICULAR RESPONSE LEFT AXIS DEVIATION MODERATE INTRAVENTRICULAR CONDUCTION DELAY VOLTAGE CRITERIA FOR LVH ST DEVIATION AND MODERATE T-WAVE ABNORMALITY, CONSIDER LATERAL ISCHEMIA Electronically Signed On 04-12-2017 9:15:02 EST by Gloria Good
[2017-04-12] MEDS ORDERED: Ondansetron 4 MG/2 ML VIAL IVP PRN ×2 (09:41→11:07)
--- NOTE | 2017-04-12 09:41 | Palliative - Consult Note ---
Date of Encounter: 04/12/17 Time of Encounter: 09:40 - Assessment and Plan (1) Abdominal pain Current Visit: Yes Status: Acute Assessment and plan: She is still able to take po - has [place] ordered, and IV Morphine if unable to take or if ineffective for pain. Monitor closely and titrate as needed. Qualifiers: Abdominal location: lower abdomen, unspecified Qualified Code(s): R10.30 - Lower abdominal pain, unspecified (2) Nausea Current Visit: Yes Status: Acute Assessment and plan: Ondansetron PRN. Monitor (3) Counseling regarding advanced care planning and goals of care Current Visit: Yes Status: Acute Assessment and plan: After discussion with surgery, pt has declined surgical intervention, and desires to be comfortable. Awaiting daughter to return to discuss options and how they would like to proceed. (4) Free intraperitoneal air Current Visit: Yes Status: Acute Palliative-CN HPI - Data of Consult Consult date: 04/12/17 Requesting Physician: Cristian Riley MD Primary Care Provider: Marti Waite - Consult Narrative History of present illness: Ms. Gomez is a 89 year old female who was admitted with bowel perforation. She was here previously and treated for diverticulitis. She improved with antibiotic treatment and was discharged to rehab. Within the last 24-46 hours prior to admission, she developed progressive, worsening LLQ pain that radiate to the RLQ, and nausea. Pain was exacerbated with movement. Free air was noted on imaging and surgical consult was obtained. After discussion of risk/ benefits regarding surgical options, pt has elected to transition to comfort measures and not pursue surgery. She is hard of hearing, but alert and oriented and able to make own decisions. Son/daughter have been at hospital and aware of pt decision. CC: Cristian Riley MD Past Med Surg Social Fam HX - Past Medical History Medical history: atrial fibrillation, cancer, COPD, GI bleed, hyperlipidemia, hypertension, renal disease Psychiatric history: no psych history - Past Surgical History Surgical History: cholecystectomy - Social History Smoking Status: Former smoker Smokeless Tobacco Status: No Alcohol use: occasionally Drug use: none - Family History Mother Hx Family Cardiac Disorders: Yes Medications and Allergies Oxygen 2 l NS AD 10/22/15 [History] Aspirin [Lo-Dose Aspirin EC] 81 mg PO DAILY 01/09/17 [History] Furosemide [Lasix] 20 mg PO DAILY 01/09/17 [History] HydrOXYzine 25 mg PO TID 01/09/17 [History] Inulin/Chromium Picolinate [Fiber Gummies] 1 each PO DAILY 01/09/17 [History] Lactobacillus Acidophilus [Acidophilus Probiotic] 1 mg PO DAILY 01/09/17 [ History] Levothyroxine [Synthroid] 50 mcg PO 0630 01/09/17 [History] Metoprolol Tartrate [Lopressor] 25 mg PO BID 01/09/17 [History] Multivitamin [Multi-Day Vitamins] 1 each PO DAILY 01/09/17 [History] Ubidecarenone [Co Q-10] 200 mg PO DAILY 01/09/17 [History] metOLazone [Zaroxolyn] 5 mg PO DAILY 01/09/17 [History] Lifitegrast [Xiidra] 1 drop BOTH EYES BID 04/02/17 [History] Amoxicillin/Clavulanate [Augmentin] 500 mg PO BIDWM #4 tablet 04/05/17 [Rx] HYDROcodone/Acet 5/325 mg [[place] 5-325 mg] 1 tab PO Q6HR PRN #20 tablet [Rx] Fluticasone/Vilanterol [Breo Ellipta 200-25 Mcg INH] 1 each IH DAILY 04/11/17 [ History] Lactose-Reduced Food [Ensure Liquid] 1 bottle PO TIDWM 04/11/17 [History] Mirtazapine 7.5 mg PO HS 04/11/17 [History] Nystatin [Nystatin Suspension] 500,000 unit PO QID 04/11/17 [History] Spironolactone [Aldactone] 50 mg PO DAILY 04/11/17 [History] 3 Allergy/AdvReac Type Severity Reaction Status Date / Time iodine AdvReac Mild Drowsy Verified 04/02/17 02:02 quinidine AdvReac Lethargic Verified 04/02/17 02:02 All systems: reviewed and no additional remarkable complaints except as stated ( intermittent sharp abdominal pain, occasional nausea, weakness) Palliative Care-Exam - Constitutional Vitals: Temp Pulse Resp BP Pulse Ox 95.9 F L 128 18 82/58 97 04/12/17 07:23 04/12/17 08:00 04/12/17 08:16 04/12/17 08:16 04/12/17 08:16 General appearance: Present: no acute distress - Head Head Exam: Present: normal inspection, normocephalic - Eye Eye exam: Present: normal appearance, PERRL - Respiratory Respiratory exam: Present: CTAB - Cardiovascular Cardiovascular exam: Present: irregular rhythm, tachycardia - GI/Abdominal Exam GI/Abdominal exam: Present: distended, tenderness - Catheter Type: Urethral (Gray) - Extremities Exam Extremities exam: Present: normal capillary refill, normal inspection - Neurological Exam Neurological exam: Present: alert, oriented X3, strengths equal and symetr throughout - Skin Skin exam: Present: dry, pallor, warm Internal Medicine - CN: Reslt - Labs CBC & Chem 7: 04/12/17 04:06 04/12/17 04:06 Labs: Short CBC 04/12/17 Range/Units 04:06 WBC 34.3 H* (4.3-11.1) K/mcL Hgb 9.2 L D (11.5-15.4) g/dL Hct 29.0 L (35.3-44.9) % Plt Count 313 (140-400) K/mcL Neutrophils # 30.9 H (1.6-8.9) K/mcL BMP 04/12/17 04:06 Sodium 129 L Potassium 5.2 H Chloride 99 Carbon Dioxide 19 L BUN 60 H Creatinine 1.95 H Glucose 80 Calcium 7.8 L Urine 04/11/17 Range/Units 19:40 Urine Color Dark Yellow (Yellow) Urine Clarity Clear (Clear) Urine pH 5.5 (5.0-8.0) pH Units Ur Specific [place] 1.022 (1.010-1.025) Urine Protein Negative (Neg-Trace) mg/dL Urine Glucose (UA) Normal (Normal) mg/dL - ABG Interpretation ABG results: PT/INR, D-dimer PT 19.0 Seconds (9.4-12.1) H 04/11/17 15:57 Consult Discharge Plan - Plan Referrals: Marti Waite MD [Primary Care Provider] - Palliative Quality Palliative Quality: Screen for Code Status: Yes, Screen for Goals of Care: Yes, Screen for Pain: Yes, If Pain Regimen Started, Initiate Bowel Regimen: NA, Screen for Nausea/Vomitting: Yes Code Status: 04/11/17 22:10 Resuscitation Status: Active [RES] Routine Comment: Resuscitation Status: [id number] 04/12/17 08:35 CODE [Resuscitation Status: Active] [RES] Routine Comment: Resuscitation Status: DNR-Comfort Care
--- NOTE | 2017-04-12 09:57 | Event Note ---
Date of Encounter: 04/12/17 Time of Encounter: 09:57 Palliative care, consult cancelled.
[2017-04-12 11:02] VITALS: BP 78/59
[2017-04-12] MEDS ORDERED: *HR* Enoxaparin 30 MG/0.3 ML SYRINGE SQ SCH ×3 (11:30→18:00)
[2017-04-12] MEDS ORDERED: *HR* Metoprolol 5 MG/5 ML VIAL IVP SCH ×2 (12:00)
[2017-04-12] MEDS ORDERED: Ipratropium/Albuterol Neb 3 ML IH SCH (12:00)
[2017-04-12] MEDS ORDERED: *HR* LORazepam Oral Conc 2 MG/ML SL PRN (13:51)
[2017-04-12] MEDS ORDERED: Morphine Oral CONC 5 MG/0.25 ML ORAL.SYG PO PRN ×2 (13:51→13:54)
[2017-04-12] MEDS ORDERED: Haloperidol Oral Conc 10 MG/5 ML UDC PO PRN (14:27)
[2017-04-12] MEDS: Atropine Sulfate 1% 40 DROP/2 ML BOTTLE SL PRN ×2 (16:19→21:16)
[2017-04-13] MEDS: Ipratropium/Albuterol Neb 3 ML IH SCH ×2 (04:41→08:21)
[2017-04-13] MEDS: Atropine Sulfate 1% 40 DROP/2 ML BOTTLE SL PRN (06:13)
[2017-04-13] MEDS ORDERED: Levothyroxine Sodium 100 MCG VIAL IVP SCH ×2 (06:30)
[2017-04-13] MEDS: metroNIDAZOLE 500 MG TABLET PO SCH (09:41)
--- NOTE | 2017-04-13 14:16 | Death Note ---
Discharge Sum: Summary - Date and Time Date of admission: 04/11/17 19:27 Date of : 04/13/17 Time of : 13:49 - Summary Details: Ms. Gomez was an 89 y/o female recently hospitalized for acute sigmoid diverticulitis. She was discharged on PO abx and at that time she did not want any surgical intervention if needed. She returned to the hospital on 04/11/17 due to worsening abdominal pain. She was evaluated in the ED and found to have pneumoperitoneum consistent with worsening perforation. She was evaluated by surgery in ED but refused surgery at that time. She was admitted to [facility]. Ms Gomez was admitted to [facility]. She was started on IV abx Pain was managed as well. She had worsening respiratory status and was transferred to ICU. Discussion ensued regarding her need for surgery or she would . She continued to say she did not want surgery despite knowing she would otherwise. She was made DNR CC and seen by palliative service. She was transferred to palliative room on 2A. In the evening of 04/12 she became unresponsive but remained comfortable. She at 1349 with son at bedside. D/C time 41min - Additional Data Confirmation of as documented by pronouncing clinician: no pulse, no respirations, no heart sounds Family: at bedside Attending/PCP notified?: Yes (Pronouncing physician) Attending physician: Graham Flor, DO Was code activated?: No Autopsy requested?: No tax examiner notified?: No Organ bank notified?: Yes Advance directives: Yes Hospice patient?: No Discharge Sum: Diag - PCOD Probable Cause of : Septic shock (From peritonitis from perforated viscus) Discharge Sum: Prov - Provider Primary care physician: Marti Waite Admitting clinician: Ann Marie Cason Attending physician on admission: Ann Marie Cason Consults: 04/11/17 20:02 Consult to Surgery [CONS] Stat Consulting Provider: Ira [facility] Reason for Consult: perforated diverticulitis with free abd air Time Notified: 18:00 Call Completed: Yes 04/12/17 03:15 Consult to Wound Care [CONS] Routine Reason for Consult: rt arm skin tear [id number], draining Call Completed: No 04/12/17 03:17 Consult to Brim Curler [CONS] Routine Reason for SW Consult: doing rehab currently at [facility] 04/12/17 03:18 Consult to Pastoral Services [CONS] Routine Comment: patient request 04/12/17 06:51 Consult to Pulmonology [CONS] Routine Consulting Provider: [facility] [place] Reason for Consult: sepsis Call Completed: Yes 04/12/17 06:53 Consult to Nephrology [CONS] Routine Consulting Provider: [facility] Reason for Consult: anuria, abdo sepsis Call Completed: Yes Pronouncing clinician: Graham Flor
== END 2017-04-13 15:08 | disposition expired | DRG 871 ==
LOC: EMEROO 15:40 → SUATTDRO 19:27 → 2NNU 19:27 → ICNU 04-12 07:00 → 2ANU 04-12 12:56
PROVIDERS: ADMIT Internal Medicine Hematology & Oncology; ATTEND Internal Medicine